=== PATIENT | female | born 1990 | race Caucasian/White ===

== ENCOUNTER → 2017-11-20 10:51 | Outpatient (CLI) | payer MEDICAID, SELFPAY ==
--- NOTE | 2017-11-20 10:53 | US_ITS ---
US transvaginal HISTORY: ITS.REASON: abnormal vag bleeding ORDERING PHYSICIAN: Srikanth Barrios MD PATIENT AGE: 26 years COMPARISON: FINDINGS: The uterus is 8 x 4 x 5 cm with a combined endometrial thickness of 10 mm including a small amount of fluid within the endometrium. No obvious uterine mass. section scar is noted. Left ovary is 3.7 x 2.4 cm. Right ovary is 2.9 x 1.9 cm with small follicles. No cul-de-sac fluid evident. IMPRESSION: 1. Small amount fluid within the endometrium. 2. Otherwise negative pelvic ultrasound
== END ==
PROVIDERS: PCP Physician Assistant; Visit Provider Nurse Practitioner Obstetrics & Gynecology
DX: N93.9 Abnormal uterine and vaginal bleeding, unspecified (principal)
CPT/HCPCS: 76830

== ENCOUNTER → 2020-02-07 17:29 | Outpatient (CLI) | payer MEDICAID, SELFPAY | PROVIDERS: Visit Provider Nurse Practitioner Obstetrics & Gynecology | DX: N39.0 Urinary tract infection, site not specified (principal) | CPT/HCPCS: 87086 ==

== ENCOUNTER 2020-06-28 17:10 | Emergency (ER) | payer MEDICAID, SELFPAY ==
[2020-06-28 17:30] VITALS: BP 131/72; PULSE 106; RESP 20; TEMP 36.6; O2SAT 100; BMI 27.6
[2020-06-28 17:35] VITALS: BP 131/72; PULSE 106; RESP 20; TEMP 36.6; O2SAT 100; BMI 27.6
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
[2020-06-28 18:28] VITALS: BP 131/72; PULSE 106; RESP 20; TEMP 36.6; O2SAT 100
== END 2020-06-28 18:30 | disposition home or self-care (01) ==
PROVIDERS: Emergency Provider Nurse Practitioner; PCP Physician Assistant
DX: S20.212A Contusion of left front wall of thorax, initial encounter (principal); S60.222A Contusion of left hand, initial encounter; V47.5XXA Car driver injured in collision with fixed or stationary object in traffic accident, initial encounter; Y92.488 Other paved roadways as the place of occurrence of the external cause
CPT/HCPCS: 71101; 73130; 99201

== ENCOUNTER 2021-11-11 03:09 | Emergency (ER) | payer MEDICAID, SELFPAY ==
[2021-11-11 03:11] VITALS: BP 141/88; PULSE 86; RESP 19; TEMP 36.8; O2SAT 98; BMI 25.7
[2021-11-11 03:32] VITALS: BMI 25.7
--- NOTE | 2021-11-11 03:32 | XR_ITS ---
PROCEDURE INFORMATION: Exam: XR Chest Exam date and time: 11/11/2021 4:05 AM Age: 30 years old Clinical indication: Cough TECHNIQUE: Imaging protocol: XR of the chest. Views: 2 views. COMPARISON: CR XR RIBS LT MIN 3V W CXR1V 06/28/2020 5:37 PM FINDINGS: Lungs: Unremarkable. No consolidation. Pleural spaces: Unremarkable. No pleural effusion. No pneumothorax. Heart/Mediastinum: Unremarkable. No cardiomegaly. Bones/joints: Unremarkable. IMPRESSION: No acute cardiopulmonary abnormality.
[2021-11-11 03:44] LABS: Coronavirus 19, PCR Not Detected (NotDetected); Influenza A, PCR Not Detected (NotDetected); Influenza B, PCR Not Detected (NotDetected)
[2021-11-11 03:48] LABS: Basophils # 0.2 K/mm3 (0-0.2); Basophils % 2.2 % (0.1-2.0); Eosinophils # 0.2 K/mm3 (0.0-0.4); Eosinophils % 2.9 % (0.1-12.0); Hematocrit 42.4 % (37.0-47.0); Hemoglobin 13.5 g/dL (12.2-16.2); Lymphocytes # 1.8 K/mm3 (0.7-4.5); Mean Corpuscular Hemoglobin 31.2 pg (27.0-31.2); Mean Corpuscular Volume 97.7 fl (81-99); Mean Platelet Volume 8.3 fl (7.4-10.4); Monocytes # 0.5 K/mm3 (0.1-1.0); Monocytes % 6.8 % (1.7-9.3); Neutrophils % 65.1 % (37.0-80.0); Platelet Count 336 K/mm3 (142-424); Red Blood Count 4.34 M/mm3 (4.20-5.40); Red Cell Distribution Width 15.1 % (11.5-17.5); White Blood Count 7.7 K/mm3 (4.8-10.8)
[2021-11-11 03:56] LABS: Monoscreen (Rapid) Negative (Negative)
[2021-11-11 04:00] LABS: Alanine Aminotransferase 16 U/L (12-78); Albumin Level 4.3 g/dl (3.5-5.0); Albumin/Globulin Ratio 1.7 (1.1-1.8); Alkaline Phosphatase 72 U/L (38-126); Anion Gap 11.9 mEq/L (5-15); Aspartate Amino Transferase 26 U/L (14-36); Bilirubin,Total 0.4 mg/dl (0.2-1.3); Blood Urea Nitrogen 9 mg/dl (7-17); Calcium 9.5 mg/dl (8.4-10.2); Carbon Dioxide 26 mmol/L (22.0-30.0); Chloride 107 mmol/L (98-107); Creatinine Clearance Estimated 99 mL/min (50-200); Estimated Glomerular Filt Rate 84 ml/min (>60); GFR (African American) 101 ML/MIN (>60); Globulin 2.6 g/dL (1.3-3.2); Glucose 95 mg/dl (74-100); Potassium 3.9 mmoL/L (3.5-5.1); Sodium 141 mmol/L (136-145); Total Protein,Serum 6.9 g/dl (6.3-8.2)
[2021-11-11 04:03] LABS: Strep Scrn Group A (Rapid) Negative (Negative)
[2021-11-11 04:05] LABS: C-Reactive Protein 1.1 mg/L (0-4)
--- NOTE | 2021-11-11 04:09 | HMH.EDURI ---
ED Disposition Clinical Impression: Bronchitis Disposition: Home, Self-Care Condition on Discharge: Good Instructions: DI for Acute Bronchitis Additional Instructions: use meds and see pcp for follow up Prescriptions: levoFLOXacin [Levaquin 500mg tab] 500 mg PO DAILY #7 tab Transmission Status: Pending to [facility] predniSONE [Prednisone 20mg Tab] 20 mg PO BID #10 tab Transmission Status: Pending to [facility] Referrals: Mary Yang PA [Primary Care Provider] - - Critical Care Critical Care Time: No Attestation: On 11/11/21, the high probability of a clinically significant, sudden or life threatening deterioration of the following system(s) required my full and direct attention, intervention and personal management. The time I documented below is in addition to time spent performing reported procedures but includes the following listed in this critical care notation. Medical Decision Making - Medical Records Medical records reviewed: Yes: I reviewed the patient's medical records. - Ilya Inquiry Pt receiving controlled substance: No Vital Signs: 11/11/21 03:11 Temperature 98.2 F Temperature Source Oral Pulse Rate [Right] 86 Respiratory Rate 19 Blood Pressure [Right Arm] 141/88 H Blood Pressure Mean [Right Arm] 105 02 Sat by Pulse Oximetry 98 Oxygen Delivery Method Room Air - Lab Data Lab results reviewed: Yes: I reviewed the patient's lab results. Lab Results 11/11/21 03:26: WBC 7.7, RBC 4.34, Hgb 13.5, Hct 42.4, MCV 97.7, MCH 31.2, MCHC 32.0, RDW 15.1, Plt Count 336, MPV 8.3, Neut % (Auto) 65.1, Lymph % (Auto) 23.0, Newberry % (Auto) 6.8, Eos % (Auto) 2.9, Baso % (Auto) 2.2 H, Neut # (Auto) 5.0, Lymph # (Auto) 1.8, Newberry # (Auto) 0.5, Eos # (Auto) 0.2, Baso # (Auto) 0.2, ESR 15 11/11/21 03:26: Sodium 141, Potassium 3.9, Chloride 107, Carbon Dioxide 26, Anion Gap 11.9, BUN 9, Creatinine 0.80, Estimated Creat Clear 99, Estimated GFR 84, Est GFR ( Amer) 101, Glucose 95, Calcium 9.5, Total Bilirubin 0.4, AST 26, ALT 16, Alkaline Phosphatase 72, C-Reactive Protein 1.1, Total Protein 6.9, Albumin 4.3, Globulin 2.6, Albumin/Globulin Ratio 1.7, Procalcitonin 0.042 11/11/21 03:26: Monoscreen Negative 11/11/21 03:26: Group A Strep Rapid Negative 11/11/21 03:26: SARS-CoV-2 (PCR) Not detected, Influenza A Untype (PCR) Not detected, Influenza Type B (PCR) Not detected Result diagrams: 11/11/21 03:26 11/11/21 03:26 Orders (Tests/Meds): ED MEDICATIONS Discontinued Medications Generic Name Dose Route Start Last Admin Trade Name Freq PRN Reason Stop Dose Admin Acetaminophen/Codeine Phosphate 1 jeanmarie 11/11/21 04:41 Acetaminophen 300mg W/Codeine 30mg Take Home Pack (6) PO 11/11/21 04:42 ONCE ONE Levofloxacin 500 mg 11/11/21 04:41 Levofloxacin 500mg Tab PO 11/11/21 04:42 ONCE ONE Prednisone 40 mg 11/11/21 04:17 11/11/21 04:22 Prednisone 20mg Tab PO 11/11/21 04:18 Not Given ONCE ONE Prednisone 40 mg 11/11/21 04:41 Prednisone 20mg Tab PO 11/11/21 04:42 ONCE ONE ORDERS Category Date Time Status CXR 2 view (NOT portable) [XR chest 2V] Stat Exams 11/11/21 03:32 Taken Strep Screen Confirmation Stat Micro 11/11/21 03:26 Received - Radiology Data #1 Image(s): Chest Image Reviewed: Yes I have reviewed radiologist's interpretation Preliminary Findings: Normal/NAD Medical Decision Narrative: will direct support professional caregiver meds at this time URI/Sore Throat HPI - General Chief Complaint: Upper Respiratory Infection Stated Complaint: Sore Throat;swollen glands and knot under jaw Time Seen by Provider: 11/11/21 04:10 Mode of Arrival: Family Vehicle Source of Information: Patient, Significant Other, Medical Record Limitations: No Limitations Description of Symptoms (Recalled from ER Triage Doc. by RN): Pt c/o productive cough and sore throat that began last night 11/10. She also c/o swelling to left lymph node. Denies fever
[2021-11-11 04:15] LABS: Erythrocyte Sedimentation Rate 15 mm/hr (0-20)
[2021-11-11 04:19] LABS: Procalcitonin 0.042 ng/mL (0.0-2.0)
[2021-11-11 04:50] VITALS: BP 140/80; PULSE 70; RESP 18; TEMP 36.7; O2SAT 99
== END 2021-11-11 04:57 | disposition home or self-care (01) ==
PROVIDERS: Emergency Provider Emergency Medicine; PCP Physician Assistant
DX: J40 Bronchitis, not specified as acute or chronic (principal); Z88.5 Allergy status to narcotic agent; Z88.8 Allergy status to other drugs, medicaments and biological substances; Z72.0 Tobacco use; F41.9 Anxiety disorder, unspecified; F32.A Depression, unspecified; Z80.1 Family history of malignant neoplasm of trachea, bronchus and lung; Z80.8 Family history of malignant neoplasm of other organs or systems
CPT/HCPCS: 71046; 80053; 84145; 85025; 85651; 86140; 86318; 87430; 99284; C9803; U0003; U0005

== ENCOUNTER 2024-05-11 11:02 | Outpatient (CLI) | payer MEDICAID, SELFPAY ==
--- NOTE | 2024-05-11 11:42 | ECG_ITS ---
APPROVED REPORT Exam: Resting ECG HR:92 bpm ECG Measurements Heart Rate 92 AXES WV 152 P 67 QRSd 70 QRS 61 QT 358 T 36 QTc 407 Conclusion SINUS RHYTHM NORMAL ECG UNCONFIRMED REPORT Electronically signed by : Brian Woods MD 05/13/2024 09:04:56
[2024-05-11 12:40] LABS: Basophils % 0.6 % (0.1-2.0); Eosinophils # 0.5 K/mm3 (0.0-0.4); Eosinophils % 7.6 % (0.1-12.0); Hematocrit 39.6 % (37.0-47.0); Hemoglobin 12.8 g/dL (12.2-16.2); Lymphocytes # 1.3 K/mm3 (0.7-4.5); Mean Corpuscular HGB Conc 32.4 g/dL (31.8-35.4); Mean Corpuscular Hemoglobin 31.7 pg (27.0-31.2); Mean Corpuscular Volume 97.6 fl (81-99); Mean Platelet Volume 8.3 fl (7.4-10.4); Monocytes # 0.6 K/mm3 (0.1-1.0); Monocytes % 8.2 % (1.7-9.3); Neutrophils # 4.7 K/mm3 (1.8-7.8); Neutrophils % 65.5 % (37.0-80.0); Platelet Count 303 K/mm3 (142-424); Red Blood Count 4.06 M/mm3 (4.20-5.40); Red Cell Distribution Width 13.1 % (11.5-17.5); White Blood Count 7.1 K/mm3 (4.8-10.8)
[2024-05-11 13:05] LABS: Albumin Level 3.1 g/dl (3.5-5.0); Chloride 108 mmol/L (98-107); Potassium 3.3 mmoL/L (3.5-5.1); Sodium 137 mmol/L (136-145)
[2024-05-11 13:08] LABS: Alanine Aminotransferase 37 U/L (12-78); Albumin/Globulin Ratio 1.2 (1.1-1.8); Alkaline Phosphatase 49 U/L (38-126); Aspartate Amino Transferase 49 U/L (14-36); Bilirubin,Total 0.8 mg/dl (0.2-1.3); Blood Urea Nitrogen 4 mg/dl (7-17); Cholesterol 107 mg/dl (140-200); Estimated Glomerular Filt Rate 96 ml/min (>60); GFR (African American) 116 ML/MIN (>60); Globulin 2.5 g/dL (1.3-3.2); Total Protein,Serum 5.6 g/dl (6.3-8.2); Triglycerides 52 mg/dl (30-150); VLDL Cholesterol 10 mg/dL (0-40)
[2024-05-11 13:09] LABS: Calcium 8.5 mg/dl (8.4-10.2); Chol/HDL Ratio 2.9 (1-3.5); Glucose 126 mg/dl (74-100); HDL Cholesterol 37 mg/dl (40-60)
[2024-05-11 13:12] LABS: Erythrocyte Sedimentation Rate 15 mm/hr (0-20)
[2024-05-11 13:15] LABS: C-Reactive Protein 2.4 mg/L (0-4)
[2024-05-11 13:18] LABS: NT Pro Brain Natriuretic Pep. 93.2 pg/mL (0-125)
[2024-05-11 13:20] LABS: Direct LDL Cholesterol 57.27 mg/dL (100-129)
[2024-05-11 14:46] LABS: Uric Acid 3.7 mg/dl (2.5-6.2)
[2024-05-11 15:17] LABS: Thyroid Stimulating Hormone 1.01 uIU/mL (0.465-4.68)
[2024-05-11 15:22] LABS: Anion Gap 10.3 mEq/L (5-15); Carbon Dioxide 22 mmol/L (22.0-30.0)
[2024-05-11 15:55] LABS: HIV (1&2) Antibody Rapid NONREACTIVE (NONREACTIVE)
[2024-05-12 12:13] LABS: Anti-Centromere B Antibodies <0.2 AI (0.0-0.9); Anti-DNA (DS) Ab Qn <1 IU/mL (0-9); Anti-Jo-1 <0.2 AI (0.0-0.9); Anti-Smith Antibody <0.2 AI (0.0-0.9); Antichromatin Antibodies <0.2 AI (0.0-0.9); Antiscleroderma-70 Antibodies <0.2 AI (0.0-0.9); RNP Antibodies <0.2 AI (0.0-0.9); Sjogren's Anti-SS-A <0.2 AI (0.0-0.9); Sjogren's Anti-SS-B <0.2 AI (0.0-0.9)
[2024-05-13 02:39] LABS: Lupus Reflex Interpretation Comment: (.); PTT-LA 37.8 sec (0.0-43.5); dRVVT 35.6 sec (0.0-47.0)
[2024-05-13 20:10] LABS: HCV Ab Reactive (Non Reactive)
== END 2024-05-11 23:59 | disposition home or self-care (01) ==
PROVIDERS: PCP Family Medicine; Visit Provider Family Medicine
DX: R00.0 Tachycardia, unspecified (principal); M79.89 Other specified soft tissue disorders; M25.50 Pain in unspecified joint; Z11.4 Encounter for screening for human immunodeficiency virus [HIV]
CPT/HCPCS: 36415; 80050; 80053; 80061; 83880; 84443; 84550; 85025; 85613; 85651; 86140; 86225; 86235; 86803; 87389; 93005

== ENCOUNTER 2024-06-12 14:39 | Emergency (ER) | payer MEDICAID, SELFPAY ==
--- OUTSIDE RECORDS SUMMARY | 2024-06-12 14:44 | XMS_ITS | Encounter Summary ---
Author Organization [facility] Address [address] [place] [address] Care Team Providers Care Short Filler Bunch Machine Operator Name Role Phone Eugenio Ibarra MD Primary Care Provider [phone] Reason for Referral * Diagnostic Imaging (Routine) - Closed Specialty Diagnoses / Procedures Referred By Contac t Referred To Contact Radiology Diagnoses Umbilical hernia without obstruction and without gangrene Procedures CT Abdomen Pelvis Without Contrast Hoang Justice MD [address] [place] [address] Phone: tel: fax: [place] [address] Phone: tel: Referral ID Status Reason Start Date Expiration Date Visits Re quested Visits Authorized [id number] Closed 11/23/2019 01/06/2020 1 1 Reason for Visit * Diagnostic Imaging (Routine) - Closed Specialty Diagnoses / Procedures Referred By Contac t Referred To Contact Radiology Diagnoses Umbilical hernia without obstruction and without gangrene Procedures CT Abdomen Pelvis Without Contrast Hoang Justice MD [address] [place] [address] Phone: tel: fax: [address] [phone] Phone: tel: Referral ID Status Reason Start Date Expiration Date Visits Re quested Visits Authorized [id number] Closed 11/23/2019 01/06/2020 1 1 Encounter Details Date Type Department Care Team (Late st Contact Info) Description 12/08/2019 10:32 AM EDT - 12/08/2019 11:59 PM EDT Hospital Encounter [facility] [address] [place] [phone] Hoang Justice MD [address] [facility] [address] [place] [id number] Umbilical hernia without obstruction and without gangrene Discharge Disposition: Home or Self Care Social History Tobacco Use Types Packs/Day Years Used Date Smoking Tobacco: Every Day Cigarettes Alcohol Use Standard Drinks/Week Comments No 0 (1 standard drink = 0.6 oz pur e alcohol) Comments Unknown Sex and Gender Information Value Date Recorded Sex Assigned at Not on file Legal Sex Female 11:09 PM EDT Gender Identity Not on file Sexual Orientation Not on file documented as of this encounter Medications at Time of Discharge nitrofurantoin, macrocrystal-monohyd rate, (MACROBID) 100 MG capsule Take 100 mg by mouth 2 (Two) Times a Day. ondansetron ODT (ZOFRAN-ODT) 4 MG disintegrating tablet Take 1 tablet by mouth Every 6 (Six) Hours As Needed for Nausea or Vomiting for up to 15 doses. 10 tablet 02/05/2017 Buprenorphine HCl-Naloxone HCl (SUBOXONE SL) Place under the tongue. 0 documented as of this encounter Plan of Treatment Not on file documented as of this encounter Procedures Procedure Name Priority Date/Time Associated Diagnosis Comments CT ABDOMEN PELVIS WO CONTRAST Routine 12/08/2019 11:45 AM EDT Umbilical hernia without obstruction and without gangrene documented in this encounter Results * CT Abdomen Pelvis Without Contrast (12/08/2019 11:45 AM EDT) Anatomical Region Laterality Modality Abdomen, Pelvis N/A Computed Tomogra phy 12/08/2019 12:0 6 PM EDT Impressions 12/10/2019 10:01 AM EDT 1. No evidence of periumbilical hernia or other abdominal wall hernia. 2. No evidence of acute intra-abdominal or intrapelvic disease. D: ??12/08/2019 E: ??12/08/2019 This report was finalized on 12/10/2019 10:[address] Krishan Husain MD. Narrative 12/10/2019 10:01 AM EDT EXAMINATION: CT ABDOMEN AND PELVIS WO CONTRAST-12/08/2019: INDICATION: K42.9 Umbilical hernia; K42.9-Umbilical hernia without obstruction or gangrene. TECHNIQUE: 5 mm postoral contrast images through the abdomen and pelvis. The radiation dose reduction device was turned on for each scan per the ALARA (As Low as Reasonably Achievable) protocol. COMPARISON: NONE. FINDINGS: History indicates status post umbilical hernia repair in 2018, subsequent infection. Followup. No current complaints. The included lower lungs appear grossly clear. No significant abnormalities are noted of the liver, gallbladder, spleen, pancreas, adrenal glands, or kidneys for a non-IV contrast enhanced exam. No upper abdominal adenopathy, ascites, or acute inflammatory change is appreciated. Regarding the lower abdomen and pelvis, there is only trace fat stranding around the umbilicus. There is no evidence of recurrent hernia and no evidence of abdominal wall hernia or inguinal hernia elsewhere. Regarding the lower abdomen and pelvis, there is a normal appearing terminal ileum, cecum and appendix. The uterus and ovaries are normal in size and appearance. The bladder is normally distended and normal in appearance. There appear to be bilateral tubal ligation clips in place. No mass, adenopathy, or inflammatory change is seen. Procedure Note Krishan Husain MD - 12/10/2019 EXAMINATION: CT ABDOMEN AND PELVIS WO CONTRAST-12/08/2019: INDICATION: K42.9 Umbilical hernia; K42.9-Umbilical hernia without obstruction or gangrene. TECHNIQUE: 5 mm postoral contrast images through the abdomen and pelvis. The radiation dose reduction device was turned on for each scan per the ALARA (As Low as Reasonably Achievable) protocol. COMPARISON: NONE. FINDINGS: History indicates status post umbilical hernia repair in 2018, subsequent infection. Followup. No current complaints. The included lower lungs appear grossly clear. No significant abnormalities are noted of the liver, gallbladder, spleen, pancreas, adrenal glands, or kidneys for a non-IV contrast enhanced exam. No upper abdominal adenopathy, ascites, or acute inflammatory change is appreciated. Regarding the lower abdomen and pelvis, there is only trace fat stranding around the umbilicus. There is no evidence of recurrent hernia and no evidence of abdominal wall hernia or inguinal hernia elsewhere. Regarding the lower abdomen and pelvis, there is a normal appearing terminal ileum, cecum and appendix. The uterus and ovaries are normal in size and appearance. The bladder is normally distended and normal in appearance. There appear to be bilateral tubal ligation clips in place. No mass, adenopathy, or inflammatory change is seen. IMPRESSION: 1. No evidence of periumbilical hernia or other abdominal wall hernia. 2. No evidence of acute intra-abdominal or intrapelvic disease. E: 12/08/2019 This report was finalized on 12/10/2019 10:[address] Krishan Husain MD. Hoang Justice MD IMG CT ORDERABLES Final Resu lt documented in this encounter Visit Diagnoses Diagnosis Umbilical hernia without obstruction and without gangrene documented in this encounter Administered Medications Inactive Administered Medications - up to 3 most recent administrations Medication Order MAR Action Action Date Dose Rate Site barium (READI-CAT 2) suspension 450 mL 450 mL, Oral, Once, On Taty 12/08/19 at 1030, For 1 dose, {BKC} Shake well before administration. Given 12/08/2019 10:30 AM EDT 450 mL documented in this encounter Care Teams Short Filler Bunch Machine Operator Relationship Specialty Start Date End Date Eugenio Ibarra MD [address] [facility] [address] ATTN: [place] [address] PCP - General Emergency Medicine 09/04/17 documented as of this encounter
--- OUTSIDE RECORDS SUMMARY | 2024-06-12 14:44 | XMS_ITS | Clinical Summary ---
Author Organization [facility] Address [address] [place] [address] Care Team Providers Care [place] Attorney Name Role Phone Eugenio Ibarra MD Primary Care Provider [phone] Allergies Active Allergy Reactions Criticality Noted Date Comments Codeine Hives,Nausea Only 02/04/2017 Morphine And Codeine Swelling 02/04/2017 Medications nitrofurantoin, macrocrystal-monohy drate, (MACROBID) 100 MG capsule Take 100 mg by mouth 2 (Two) Times a Day. Active ondansetron ODT (ZOFRAN-ODT) 4 MG disintegrating tablet Take 1 tablet by mouth Every 6 (Six) Hours As Needed for Nausea or Vomiting for up to 15 doses. 10 tablet 7 Active Social History Tobacco Use Types Packs/Day Years Used Date Smoking Tobacco: Every Day Cigarettes Alcohol Use Standard Drinks/Week Comments No 0 (1 standard drink = 0.6 oz pur e alcohol) Abuse Screen Answer Date Recorded Unsafe at Home or Work/School Not on file Feels Threatened by Someone? Not on file 05/2023 Does Anyone Keep You from Co ntacting Others or Doint Things Outside the Home? Not on file 04/22/2023 Physical Sign of Abuse Present Not on file 1 Housing Stability Answer Date Recorded Current Living Arrangements Not on file 04/12 Potentially Unsafe Housing Conditions Not on aly e 04/22/2023 Family and Community Support Answer Reyes e Recorded Help with Day-to-Day Activities Not on file 04/22/2023 Lonely or Isolated Not on file 04/22/2023 Employment Answer Date Recorded Do you want help finding or keeping work or a karly b? Not on file 04/22/2023 Disabilities Answer Date Recorded Concentrating, Remembering, or Making Decisions Difficulty Not on file 04/22/2023 Doing Errands Independently Difficulty Not on fi le 04/22/2023 Education Answer Date Recorded Help with school or training? Not on file Preferred Language Not on file 04/22/2023 Comments Unknown Sex and Gender Information Value Date Recorded Sex Assigned at Not on file Legal Sex Female 11:09 PM EDT Gender Identity Not on file Sexual Orientation Not on file Last Filed Vital Signs Vital Sign Reading Time Taken Comments Blood Pressure 101/68 02/05/2017 4:21 AM EDT Pulse 68 02/05/2017 4:21 AM EDT Temperature 36.8 ??C (98.3 ??F) 02/04/2017 11:10 PM E DT Respiratory Rate 18 02/05/2017 4:21 AM EDT Oxygen Saturation 98% 02/05/2017 4:21 AM EDT Inhaled Oxygen Concentration - - Weight 80.3 kg (177 lb) 02/04/2017 11:10 PM EDT Height 152.4 cm (5') 02/04/2017 11:10 PM EDT Body Mass Index 34.57 02/04/2017 11:10 PM EDT Plan of Treatment Health Maintenance Due Date Last Done Comments Annual Gynecologic Pelvic and Breast Exam 1989 Pneumococcal Vaccine 0-64 (1 of 2 - PCV) 11/29/1995 TDAP/TD VACCINES (1 - Tdap) 2008 ANNUAL PHYSICAL 02/04/2017 HEPATITIS C SCREENING 02/04/2017 PAP SMEAR 02/04/2017 INFLUENZA VACCINE 01/11/2024 COVID-19 Vaccine ( season) 2024 Insurance Deng FELIPE VICKYVasile DARWIN [employer]LLER [id number] [facility] [place]ICAID [place] Advance Directives Documents on File Type Date Recorded Patient Handhole Machine Operator Expl anation LIVING WILL - SCAN 09/09/2017 3:44 PM RIKA NG WILL 09/04/17 Care Teams [place] Attorney Relationship Specialty Start Date End Date Eugenio Ibarra MD [facility] [address] ATTN: [place] [address] PCP - General Emergency Medicine 09/04/17
--- OUTSIDE RECORDS SUMMARY | 2024-06-12 14:44 | XMS_ITS | Encounter Summary ---
[facility] [address] [place] [address] Care Team Providers Care Rag Production Worker Name Role Phone Provider, No Known Primary Care Provider Unavail able Reason for Visit * Reason Comments Nausea Encounter Details Date Type Department Care Team (Late st Contact Info) Description 02/04/2017 11:27 PM EDT - 02/05/2017 4:22 AM EDT Emergency [facility] EMERGENCY DEPARTMENT [address] [place] [id number] Jace Baldwin MD [address] [facility] [place] [address] Non-intractable vomiting with nausea, unspecified vomiting type (Primary Dx); Acute superficial gastritis without hemorrhage Discharge Disposition: Home or Self Care Social [...] on file documented as of this encounter Last Filed Vital Signs Vital Sign Reading [...] Mass Index 34.57 02/04/2017 11:10 PM EDT documented in this encounter Discharge Instructions * Attachments The following attachments cannot be sent through Care Everywhere. * GASTRITIS, ADULT ([place]) * NAUSEA AND VOMITING, ADULT ([place]) documented in this encounter Medications at Time of Discharge nitrofurantoin, macrocrystal-monohyd rate, (MACROBID) 100 MG capsule Take 100 mg by mouth 2 (Two) Times a Day. ondansetron ODT (ZOFRAN-ODT) 4 MG disintegrating tablet Take 1 tablet by mouth Every 6 (Six) Hours As Needed for Nausea or Vomiting for up to 15 doses. 10 tablet 02/05/2017 omeprazole (priLOSEC) 40 MG capsule Take 1 capsule by mouth Daily for 30 days. 30 capsule 02/05/2017 7 Buprenorphine HCl-Naloxone HCl (SUBOXONE SL) Place under the tongue. 0 documented as of this encounter ED Notes * Jace Baldwin MD - 02/04/2017 11:43 PM EDT Subjective HPI Comments: Ms. Haydee Garay is a 26 year old female with a hx of 4 Caesarian sections and tubal ligation who presents to the ED with c/o nausea and vomiting. The patient states that approximately 3 months ago, she began to vomit. She reports that since then, she has vomited daily, usually no fewerthan 3 times a day. Today, the patient's noted that she had vomited 5 times prior to 1700. She notes that the vomiting increases after eating and is accompanied by abd pain and decreased urination. The patient went to the [facility] about a week and a half ago, where theydiagnosed her with a UTI and prescribed her Macrobid, however the patient states that they failed to refer her to a GI specialist. 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 She still takes minimal amounts of Suboxone throughout the week.She also takes Zofran reguarly, which she claims helps to alleviate some of the nausea. She denies any fever, SoA, changes to her BM or any other acute sx at this time. Patient is a 26 y.o. female presenting with vomiting. History provided by: Patient Vomiting The primary symptoms include abdominal pain, nausea and vomiting. Primary symptoms do not include fever or diarrhea. The illness began more than 7 days ago (3 months ago). The onset was sudden. The problem has been gradually worsening. The illness does not include constipation. Review of Systems Constitutional: Negative for fever. Respiratory: Negative for shortness of breath. Gastrointestinal: Positive for abdominal pain, nausea and vomiting. Negative for blood in stool, constipation and diarrhea. Genitourinary: Positive for decreased urine volume. All other systems reviewed and are negative. Past Medical History: Diagnosis Date ??? Asthma ??? Liver disease Allergies Allergen Reactions ??? Codeine Hives and Nausea Only ??? Morphine And Related Swelling Past Surgical History: Procedure Laterality Date ??? SECTION X 4 ??? TUBAL ABDOMINAL LIGATION History reviewed. No pertinent family history. Social History Social History ??? Marital status: Spouse name: N/A ??? Number of children: N/A ??? Years of education: N/A Social History Main Topics ??? Smoking status: Current Every Day Smoker Packs/day: 0.50 ??? Smokeless tobacco: None ??? Alcohol use No ??? 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 Sexual activity: Yes Other Topics Concern ??? None Social History Narrative ??? None Objective Physical Exam Constitutional: She is oriented to person, place, and time. She appears well- developed and well-nourished. No distress. HENT: Head: Normocephalic and atraumatic. Eyes: Conjunctivae are normal. No scleral icterus. Neck: Normal range of motion. Neck supple. Cardiovascular: Normal rate, regular rhythm and normal heart sounds. Exam reveals no gallop and no friction rub. No murmur heard. Pulmonary/Chest: Effort normal and breath sounds normal. No respiratory distress. She has no wheezes. She has no rales. Abdominal: Soft. Bowel sounds are normal. There is no tenderness. There is no guarding. Musculoskeletal: Normal range of motion. Neurological: She is alert and oriented to person, place, and time. Skin: Skin is warm and dry. She is not diaphoretic. Psychiatric: She has a normal mood and affect. Her behavior is normal. Nursing note and vitals reviewed. Procedures ED Course ED Course Recent Results (from the past 24 hour(s)) POCT , urine Collection Time: 02/05/17 12:10 AM Result Value Ref Range HCG, Urine, QL Negative Negative Lot Number [id number] Internal Positive Control Positive Internal Negative Control Negative CBC Auto Differential Collection Time: 02/05/17 12:41 AM Result Value Ref Range WBC 6.53 3.50 - 10.80 10*3/mm3 RBC 4.56 3.89 - 5.14 10*6/mm3 Hemoglobin 14.4 11.5 - 15.5 g/dL Hematocrit 43.4 34.5 - 44.0 % MCV 95.2 80.0 - 99.0 fL MCH 31.6 (H) 27.0 - 31.0 pg MCHC 33.2 32.0 - 36.0 g/dL RDW 13.8 11.3 - 14.5 % RDW-SD 48.0 37.0 - 54.0 fl MPV 11.9 6.0 - 12.0 fL Platelets 271 150 - 450 10*3/mm3 Neutrophil % 57.4 41.0 - 71.0 % Lymphocyte % 32.3 24.0 - 44.0 % Monocyte % 6.3 0.0 - 12.0 % Eosinophil % 3.2 (H) 0.0 - 3.0 % Basophil % 0.6 0.0 - 1.0 % Immature Grans % 0.2 0.0 - 0.6 % Neutrophils, Absolute 3.75 1.50 - 8.30 10*3/mm3 Lymphocytes, Absolute 2.11 0.60 - 4.80 10*3/mm3 Monocytes, Absolute 0.41 0.00 - 1.00 10*3/mm3 Eosinophils, Absolute 0.21 0.00 - 0.30 10*3/mm3 Basophils, Absolute 0.04 0.00 - 0.20 10*3/mm3 Immature Grans, Absolute 0.01 0.00 - 0.03 10*3/mm3 Scan Slide Collection Time: 02/05/17 12:41 AM Result Value Ref Range RBC Morphology Normal Normal WBC Morphology Normal Normal Platelet Morphology Normal Normal Urinalysis With / Culture If Indicated Collection Time: 02/05/17 12:42 AM Result Value Ref Range Color, UA Dark Yellow (A) Yellow, Straw Appearance, UA Cloudy (A) Clear pH, UA 6.0 5.0 - 8.0 Specific [place], UA 1.018 1.001 - 1.030 Glucose, UA Negative Negative Ketones, UA Trace (A) Negative Bilirubin, UA Small (1+) (A) Negative Blood, UA Moderate (2+) (A) Negative Protein, UA Negative Negative Leuk Esterase, UA Negative Negative Nitrite, UA Negative Negative Urobilinogen, UA 1.0 E.U./dL 0.2 - 1.0 E.U./dL Urine Drug Screen Collection Time: 02/05/17 12:42 AM Result Value Ref Range THC, Screen, Urine Negative Negative Phencyclidine (PCP), Urine Negative Negative Cocaine Screen, Urine Negative Negative Methamphetamine, Urine Negative Negative Opiate Screen Negative Negative Amphetamine Screen, Urine Negative Negative Benzodiazepine Screen, Urine Negative Negative Tricyclic Antidepressants Screen Negative Negative Methadone Screen, Urine Negative Negative Barbiturates Screen, Urine Negative Negative Oxycodone Screen, Urine Negative Negative Propoxyphene Screen Negative Negative Buprenorphine, Screen, Urine Positive (A) Negative Urinalysis, Microscopic Only Collection Time: 02/05/17 12:42 AM Result Value Ref Range RBC, UA 3-6 (A) None Seen, 0-2 /HPF WBC, UA 0-2 (A) None Seen /HPF Bacteria, UA None Seen None Seen, Trace /HPF Squamous Epithelial Cells, UA 0-2 None Seen, 0-2 /HPF Hyaline Casts, UA 0-6 0 - 6 /LPF Calcium Oxalate Crystals, UA Moderate/2+ None Seen /HPF Methodology Manual Light Microscopy POC CHEM 8 Collection Time: 02/05/17 1:40 AM Result Value Ref Range Glucose 84 70 - 130 mg/dL BUN, Arterial <3 (L) 8 - 26 mg/dL Creatinine 0.60 0.60 - 1.30 mg/dL Sodium 141 138 - 146 mmol/L Potassium 3.3 (L) 3.5 - 4.9 mmol/L Chloride 101 98 - 109 mmol/L Total CO2 24 24 - 29 mmol/L Hemoglobin 16.3 12.0 - 17.0 g/dL Hematocrit 48 38 - 51 % Ionized Calcium 1.26 1.20 - 1.32 mmol/L Lipase Collection Time: 02/05/17 1:43 AM Result Value Ref Range Lipase 27 6 - 51 U/L Note: In addition to lab results from this visit, the labs listed above may include labs taken at another facility or during a different encounter within the last 24 hours. Please correlate lab timeswith ED admission and discharge times for further clarification of the services performed during this visit. No orders to display Vitals: 02/05/17 0117 02/05/17 0118 02/05/17 0204 02/05/17 0230 BP: 102/66 109/70 100/59 BP Location: Patient Position: Pulse: Resp: Temp: TempSrc: SpO2: 98% 99% 96% Weight: Height: Medications ondansetron ODT (ZOFRAN-ODT) disintegrating tablet 4 mg (4 mg Oral Given 02/05/17 0203) ECG/EMG Results (last 24 hours) No results found for the last 24 hours. MDM Number of Diagnoses or Management Options Acute superficial gastritis without hemorrhage: new and requires workup Non-intractable vomiting with nausea, unspecified vomiting type: new and requires workup Diagnosis management comments: No acute or concerning abnormalities identified on lab evaluation. Previous labs from [facility] reviewed and nothing of concern. Previous identified urinary tract infection is currently being treated with Macrobid. Patient's symptoms are concerning for gastritis, we'll discharge the patient with referral to GI for outpatient evaluation. We'll exam remains benign, no concern for acute surgical illness. Amount and/or Complexity of Data Reviewed Clinical lab tests: ordered and reviewed Obtain history from someone other than the patient: yes Review and summarize past medical records: yes Independent visualization of images, tracings, or specimens: yes Patient Progress Patient progress: stable Final diagnoses: Non-intractable vomiting with nausea, unspecified vomiting type Acute superficial gastritis without hemorrhage Documentation assistance provided by heather Yang. Information recorded by the scribe was done at my direction and has been verified and validated by me. Hoang Yang 02/05/17 0010 Jace Baldwin MD 02/05/17 0411 documented in this encounter Plan of Treatment Not on file documented as of this encounter Procedures Procedure Name Priority Date/Time Associated Diagnosis Comments LIPASE Routine 02/05/2017 1:43 AM EDT POCT [id number]-HB- HCT STAT 02/05/2017 1:40 AM EDT URINALYSIS, MICROSCOPIC ONLY STAT 02/05/2017 12:42 AM EDT URINALYSIS W/ CULTURE IF INDICATED STAT 02/05/2017 12:42 AM EDT URINE DRUG SCREEN STAT 02/05/2017 12: 42 AM EDT SCAN SLIDE STAT 02/05/2017 12:41 AM EDT CBC WITH AUTO DIFFERENTIAL STAT 02/05/2017 12:41 AM EDT CBC AND DIFFERENTIAL STAT 02/05/2017 12:41 AM EDT POCT PEFORM URINE STAT 02/05/2017 12:10 AM EDT SCANNED - LABS 02/04/2017 documented in this encounter Results * Lipase (02/05/2017 1:43 AM EDT) Pathologist [facility] Lipase 27 6 - 51 U/L 02/05/2017 2:33 AM EDT [facility] Blood Venipuncture / Unknown 02/05/2017 1:43 AM EDT 02/05/2017 1:53 AM EDT us Jace Baldwin MD LAB BLOOD ORDERABLES Mary Beth l Result [facility]
[address] [place] [address], * (ABNORMAL) POC CHEM 8 (02/05/2017 1:40 AM EDT) Pathologist [facility] Glucose 84 70 - 130 mg/dL 02/05/2017 1:50 AM EDT [facility] BUN <3(L) 8 - 26 mg/dL 02/05/2017 1:50 AM EDT [facility] Creatinine 0.60 0.60 - 1.30 mg/dL 02/05/2017 1:50 AM EDT [facility] Sodium 141 138 - 146 mmol/L 02/05/2017 1:50 AM EDT [facility] POC Potassium 3.3(L) 3.5 - 4.9 mmol/L 02/05/2017 1:50 AM EDT [facility] Chloride 101 98 - 109 mmol/L 02/05/2017 1:50 AM EDT [facility] Total CO2 24 24 - 29 mmol/L 02/05/2017 1:50 AM EDT [facility] Hemoglobin 16.3 12.0 - 17.0 g/dL 02/05/2017 1:50 AM EDT [facility] Comment:Serial Number: [id number] Hematocrit 48 38 - 51 % 02/05/2017 1:50 AM EDT [facility] Ionized Calcium 1.26 1.20 - 1.32 mmol/L 02/05/2017 1:50 AM EDT [facility] Blood 02/05/2017 1:40 AM EDT 02/05/2017 1:50 AM EDT [facility] Raciel Baldwin MD POINT OF CARE TEST ORDERA BLES Final Result [facility]
[address] [place] [address], * (ABNORMAL) Urinalysis, Microscopic Only (02/05/2017 12:42 AM EDT) RBC, UA 3-6(A) None Seen, 0-2 /HPF 02/05/2017 1:37 AM EDT [facility] WBC, UA 0-2(A) None Seen /HPF 02/05/2017 1:37 AM EDT [facility] Bacteria, UA None Seen None Seen, Trace /HPF 02/05/2017 1:37 AM EDT [facility] Squamous Epithelial Cells, UA 0-2 None Seen, 0-2 /HPF 02/05/2017 1:37 AM EDT [facility] Hyaline Casts, UA 0-6 0 - 6 /LPF 02/05/2017 1:37 AM EDT [facility] Calcium Oxalate Crystals, UA Moderate/2+ None Seen /HPF 02/05/2017 1:37 AM EDT [facility] Methodology Manual Light Microscopy 02/05/2017 1:37 AM EDT [facility] Urine Urine specimen collection, clean catch / Unknown Collection / Unknown 02/05/2017 12:42 AM EDT 02/05/2017 12:51 AM EDT Jace Baldwin MD URINE ORDERABLES Final Re sult [facility]
[address] [place] [address], * (ABNORMAL) Urine Drug Screen (02/05/2017 12:42 AM EDT) THC, Screen, Urine Negative Negative 2016 1:18 AM EDT [facility] Phencyclidine (PCP), Urine Negative Negative 02/05/2017 1:18 AM EDT [facility] Cocaine Screen, Urine Negative Negative 02/05/2017 1:18 AM EDT [facility] Methamphetamine, Ur Negative Negative 02/05/2017 1:18 AM EDT [facility] Opiate Screen Negative Negative 02/05/2017 1:18 AM EDT [facility] Amphetamine Screen, Urine Negative Negative 02/05/2017 1:18 AM EDT [facility] Benzodiazepine Screen, Urine Negative Negative 02/05/2017 1:18 AM EDT [facility] Tricyclic Antidepressants Screen Negative Negative 02/05/2017 1:18 AM EDT [facility] Methadone Screen, Urine Negative Negative 02/05/2017 1:18 AM [facility] Barbiturates Screen, Urine Negative Negative 02/05/2017 1:18 AM [facility] Oxycodone Screen, Urine Negative Negative 02/05/2017 1:18 AM [facility] Propoxyphene Screen Negative Negative 02/05/2017 1:18 AM [facility] Buprenorphine, Screen, Urine Positive(A) Negative 02/05/2017 1:18 AM [facility] Urine Urine specimen collection, clean catch / Unknown Collection / Unknown 02/05/2017 12:42 AM EDT 02/05/2017 12:51 AM T [facility] - 02/05/2017 1:18 AM EDT Cutoff For Drugs Screened: Amphetamines ? 500 ng/ml Barbiturates ? 200 ng/ml Benzodiazepines ?150 ng/ml Cocaine ?150 ng/ml Methadone ?200 ng/ml Opiates ?100 ng/ml Phencyclidine ? 25 ng/ml THC ? 50 ng/ml Methamphetamine ?500 ng/ml Tricyclic Antidepressants ??300 ng/ml Oxycodone ?100 ng/ml Propoxyphene ? 300 ng/ml Buprenorphine ? 10 ng/ml The normal value for all drugs tested is negative. This report includes unconfirmed screening results, with the cutoff values listed, to be used for medical treatment purposes only. ??Unconfirmed results must not be used for non-medical purposes such as employment or legal testing. ??Clinical consideration should be applied to any drug of abuse test, particularly when unconfirmed results are used. ?? Jace Baldwin MD URINE ORDERABLES Final Re sult [facility]
[address] [place] [address], * (ABNORMAL) Urinalysis With / Culture If Indicated (02/05/2017 12:42 AM EDT) Color, UA Dark Yellow(A) Yellow, Straw 02/05/2017 1:17 AM EDT [facility] Appearance, UA Cloudy(A) Clear 02/05/2017 1:17 AM EDT [facility] pH, UA 6.0 5.0 - 8.0 02/05/2017 1:17 AM EDT [facility] Specific [place], UA 1.018 1.001 - 1.030 02/05/2017 1:17 AM EDT [facility] Glucose, UA Negative Negative 02/05/2017 1:17 AM EDT [facility] Ketones, UA Trace(A) Negative 02/05/2017 1:17 AM EDT [facility] Bilirubin, UA Small (1+)(A) Negative 02/05/2017 1:17 AM EDT [facility] Blood, UA Moderate (2+)(A) Negative 02/05/2017 1:17 AM EDT [facility] Protein, UA Negative Negative 02/05/2017 1:17 AM EDT [facility] Leuk Esterase, UA Negative Negative 02/05/2017 1:17 AM EDT [facility] Nitrite, UA Negative Negative 02/05/2017 1:17 AM EDT [facility] Urobilinogen, UA 1.0 E.U./dL 0.2 - 1.0 E.U./dL 02/05/2017 1:17 AM EDT [facility] Urine Urine specimen collection, clean catch / Unknown Collection / Unknown 02/05/2017 12:42 AM EDT 02/05/2017 12:51 AM EDT Jace Baldwin MD URINE ORDERABLES Final Re sult [facility]
[address] [place] [address], * Scan Slide (02/05/2017 12:41 AM EDT) RBC Morphology Normal Normal 02/05/2017 1:39 AM EDT [facility] WBC Morphology Normal Normal 02/05/2017 1:39 AM EDT [facility] Platelet Morphology Normal Normal 02/05/2017 1:39 AM EDT [facility] Blood Venipuncture / Unknown 02/05/2017 12:41 AM EDT 02/05/2017 12:51 AM EDT Jace Baldwin MD LAB BLOOD ORDERABLES Mary Beth l Result [facility]
[address] [place] [address], * (ABNORMAL) CBC Auto Differential (02/05/2017 12:41 AM EDT) WBC 6.53 3.50 - 10.80 10*3/mm3 02/05/2017 1:39 AM EDT [facility] RBC 4.56 3.89 - 5.14 10*6/mm3 02/05/2017 1:39 AM EDT [facility] Hemoglobin 14.4 11.5 - 15.5 g/dL 02/05/2017 1:39 AM EDT [facility] Hematocrit 43.4 34.5 - 44.0 % 02/05/2017 1:39 AM EDT [facility] MCV 95.2 80.0 - 99.0 fL 02/05/2017 1:39 AM [facility] MCH 31.6(H) 27.0 - 31.0 pg 02/05/2017 1:39 AM [facility] MCHC 33.2 32.0 - 36.0 g/dL 02/05/2017 1:39 AM [facility] RDW 13.8 11.3 - 14.5 % 02/05/2017 1:39 AM [facility] RDW-SD 48.0 37.0 - 54.0 fl 02/05/2017 1:39 AM [facility] MPV 11.9 6.0 - 12.0 fL 02/05/2017 1:39 AM [facility] Platelets 271 150 - 450 10*3/mm3 02/05/2017 1:39 AM [facility] Neutrophil % 57.4 41.0 - 71.0 % 02/05/2017 1:39 AM [facility] Lymphocyte % 32.3 24.0 - 44.0 % 02/05[facility]2017 [facility] Monocyte % 6.3 0.0 - 12.0 % 02/05/2017 1:39 AM [facility] Eosinophil % 3.2(H) 0.0 - 3.0 % 02/05/2017 1:39 AM [facility] Basophil % 0.6 0.0 - 1.0 % 02/05/2017 1:39 AM [facility] Immature Grans % 0.2 0.0 - 0.6 % 02/05/2017 1:39 [facility] Neutrophils, Absolute 3.75 1.50 - 8.30 10*3/mm3 02/05/2017 1:39 [facility] Lymphocytes, Absolute 2.11 0.60 - 4.80 10*3/mm3 02/05/2017 1:39 [facility] Monocytes, Absolute 0.41 0.00 - 1.00 10*3/mm3 02/05/2017 1:39 AM EDT [facility] Eosinophils, Absolute 0.21 0.00 - 0.30 10*3/mm3 02/05/2017 1:39 AM EDT [facility] Basophils, Absolute 0.04 0.00 - 0.20 10*3/mm3 02/05/2017 1:39 AM EDT [facility] Immature Grans, Absolute 0.01 0.00 - 0.03 10*3/mm3 02/05/2017 1:39 AM EDT [facility] Blood Venipuncture / Unknown 02/05/2017 12:41 AM EDT 02/05/2017 12:51 AM EDT Jace Baldwin MD LAB BLOOD ORDERABLES Mary Beth l Result [facility]
[address] [place] [address], [place] [phone] * POCT , urine (02/05/2017 12:10 AM EDT) HCG, Urine, QL Negative Negative [facility] Lot Number [id number] [facility] Internal Positive Control Positive [facility] Internal Negative Control Negative [facility] Urine 02/05/2017 12:1 0 AM EDT Jace Baldwin MD POINT OF CARE TEST ORDERA BLES Final Result [facility]
[address] [place] [address], [place] [phone] * SCANNED - LABS (02/04/2017) [facility] LAB BLOOD ORDERABLES Final Re sult documented in this encounter Visit Diagnoses Diagnosis Non-intractable vomiting with nausea, unspecified vomiting type- Primary Acute superficial gastritis without hemorrhage documented in this encounter Administered Medications Inactive Administered Medications - up to 3 most recent administrations Medication Order MAR Action Action Date Dose Rate Site ondansetron ODT (ZOFRAN-ODT) disintegrating tablet 4 mg 4 mg, Oral, Once, On [place]y 02/05/17 at 0123, For 1 dose, Place on tongue and allow to dissolve. Given 02/05/2017 2:03 AM EDT 4 mg documented in this encounter Active and Recently Administered Medications Times are shown in EDT. Scheduled Medication Order 02/03/2017 02/04/2017 02/05/2017 ondansetron ODT (ZOFRAN-ODT) disintegrating tablet 4 mg (COMPLETED) 4 mg, Oral, Once, On Taty 02/05/17 at 0123, For 1 dose, Place on tongue and allow to dissolve. 0203 (Given - Provid er: Jessenia Heart RN) documented in this encounter Care Teams Rag Production Worker Relationship Specialty Start Date End Date Provider, [place] [address] PCP - General 02/04/17 09/03/17 documented as of this encounter
[2024-06-12 15:42] VITALS: BP 107/69; PULSE 67; RESP 20; TEMP 37; O2SAT 97; BMI 29.2
--- NOTE | 2024-06-12 15:46 | ED_ITS ---
Discharge Plan Disposition Patient Disposition: Home, Self-Care Condition: Good Prescriptions Prescriptions: New azithromycin [Zithromax] 250 mg tablet 250 mg PO UD DOSE PK Qty: 6 0RF Rx Instructions: Take two (2) tablets today, then one (1) tablet days #2 thru #5 [id number]-tjetrkoqs-MT [Bromfed DM] 2-30-10 mg/5 mL Syrup 5 ml PO Q6H PRN (Reason: Cough) Qty: 240 0RF methylprednisolone 4 mg Tablets,Dose Pack 4 mg PO DIRECTED 6 Days Qty: 21 0RF Rx Instructions: Take 1 pack as directed for 6 days No Action buprenorphine-naloxone 2-0.5 mg tablet, sublingual 1 tab sublingual DAILY hydroxyzine pamoate 50 mg capsule 50 mg PO BID PRN (Reason: itching) Qty: 60 0RF Referrals Follow up/Referrals: Provider,Referral, MD [Primary Care Provider] - See instructions Activity Restrictions/Add. Instructions Additional Instructions/Restrictions: Drink plenty of fluids. Take tylenol or ibuprofen for pain or fever. Take the medications as directed. Follow up with your regular doctor. GO TO THE ER FOR ANY WORSENING SYMPTOMS Clinical Impressions Clinical Impression: Bronchitis, Sinusitis Stand Alone Forms Stand Alone Forms: Work/School Release Instructions Patient Instructions: DI for Sinusitis, Sinusitis Print Language Print Language: Finnish Discharge ED Provider: Aaron Osborne [facility] HPI General Stated complaint: congestion, weakness, dizzy, nausea Time Seen by Provider: 06/12/24 15:46 Related Data Home Medications ?Medication ?Instructions ?Recorded ?Confirmed buprenorphine 2 mg-naloxone 0.5 mg 1 tab sublingual DAILY 05/11/24 06/12/24 sublingual tablet Previous Rx's ?Medication ?Instructions ?Recorded hydroxyzine pamoate 50 mg capsule 50 mg PO BID PRN itching #60 caps 05/11/24 azithromycin 250 mg tablet 250 mg PO UD DOSE PK #6 tabs 06/12/24 (Zithromax) gssftoerpckdgqh-crmrjmwhhoqjfzp-AO 5 ml PO Q6H PRN Cough #240 mL 06/12/24 2 mg-30 mg-10 mg/5 mL oral syrup (Bromfed DM) methylprednisolone 4 mg tablets in 4 mg PO DIRECTED 6 days #21 tabs 12/01/24 a dose pack Allergies Allergy/AdvReac Type Severity Reaction Status Date / Time acetaminophen (From Allergy Mild Verified 05/11/24 10:30 Darvocet-N) propoxyphene (From Allergy Mild Verified 05/11/24 10:30 Darvocet-N) codeine (CODEINE) Allergy Unknown Verified 05/11/24 10:30 morphine (MORPHINE) Allergy Unknown Verified 05/11/24 10:30 tramadol (TRAMADOL) Allergy Unknown Verified 05/11/24 10:30 hydromorphone (From Dilaudid) AdvReac Verified 05/11/24 10:30 PFSH PFS Disclaimer: The information contained in this section may have been updated after the patient was seen, as this information can be updated by other users. Medical History Anxiety and depression Bipolar disorder Schizoaffective disorder, bipolar type Sinusitis Social History Smoking Status: Current every day smoker tobacco type: cigarettes packs per day: 1 and smokeless tobacco alcohol intake: never substance use type: denies use current occupational status: other ROS Obtained: Yes All systems reviewed & no additional complaints except as documented Constitutional Constitutional: Reports poor appetite Eyes Eyes: Reports system reviewed and no additional complaints, except as documented ENT Ears, Nose, Mouth, and Throat: Reports as per HPI Cardiovascular Cardiovascular: Reports system reviewed and no additional complaints, except as documented and Denies chest pain Respiratory Respiratory: Denies shortness of breath, Denies chest congestion, Reports cough, Denies stridor and Denies wheezing Gastrointestinal Gastrointestingal: Reports system reviewed and no additional complaints, except as documented; Denies abdominal pain, diarrhea or vomiting Musculoskeletal Musculoskeletal: Reports system reviewed and no additional complaints, except as documented and Denies arthralgias Integumentary/Breasts Skin/Breast: Reports system reviewed and no additional complaints, except as documented and Denies rash Neurologic Neurologic: Denies paresthesias Allergic/Immunologic Allergic/Immunologic: Denies wheezing Physical Exam General General appearance: alert and in no apparent distress Eye Eye exam: Present normal appearance, PERRL and EOMI ENT ENT exam: Present mucous membranes moist and normal external ear exam Expanded ENT Exam External ear exam: Present normal external inspection TM/Canal exam: Bilateral TM: erythema and bulging Nose exam: Absent sinus tenderness Nasal speculum exam: Bilateral: normal Mouth exam: Present normal external inspection; Absent drooling Teeth exam: Present normal inspection Throat exam: Present tonsillar erythema and tonsillomegaly Neck Neck exam: Present normal inspection, full ROM and trachea midline; Absent tenderness, lymphadenopathy or thyromegaly Chest Chest inspection: Present normal inspection and symmetric chest wall rise; Absent tenderness or rash Respiratory Respiratory exam: Present normal lung sounds bilaterally; Absent respiratory distress, wheezes, stridor or accessory muscle use Cardiovascular Cardiovascular exam: Present regular rate, normal rhythm and normal heart sounds Abdominal Exam Abdominal exam: Present soft; Absent distention, tenderness, guarding, rebound or rigidity Extremities Exam Extremities exam: Present normal inspection, full ROM and normal capillary refill; Absent tenderness or calf tenderness Back Exam Back exam: Present normal inspection and full ROM; Absent tenderness Neurological Exam Neurological exam: Present alert and oriented X3 Psychiatric Psychiatric exam: Present normal affect and normal mood Skin Skin exam: Present warm, dry, intact and normal color Lymphatic Lymphatic Findings: no adenopathy Medical Decision Making Medical Records Screening: Per USPSTF and CDC recommendations, given the prevalence of disease in our region, it is our hospital?s policy to screen for HIV and viral Hepatitis for all patients aged 18 and over and those with ongoing risk factors. Ilya Inquiry Pt receiving controlled substance: No
[2024-06-12 16:26] LABS: UTC Strep Screen (Rapid) Negative (Negative)
[2024-06-12 16:28] LABS: UTC Influenza A Antigen Negative (Negative); UTC Influenza B Antigen Negative (Negative)
[2024-06-12 16:44] VITALS: BP 107/69; PULSE 67; RESP 20; TEMP 37
[2024-06-12 16:45] LABS: Coronavirus 19, PCR Not Detected (NotDetected); Influenza A, PCR Not Detected (NotDetected); Influenza B, PCR Not Detected (NotDetected)
== END 2024-06-12 16:45 | disposition home or self-care (01) ==
PROVIDERS: Emergency Provider Nurse Practitioner Family
DX: J32.9 Chronic sinusitis, unspecified (principal); J40 Bronchitis, not specified as acute or chronic; R53.1 Weakness; R09.81 Nasal congestion; R42 Dizziness and giddiness; R11.0 Nausea
CPT/HCPCS: 87636; 87804; 87880; 99212; G0381

== ENCOUNTER 2024-06-15 14:08 | Outpatient (CLI) | payer MEDICAID, SELFPAY ==
--- OUTSIDE RECORDS SUMMARY | 2024-06-15 14:11 | XMS_ITS | Encounter Summary ---
Author Organization [facility] Address [address] [place] [address] Care Team Providers Care Rotary Veneer Machine Operator Name Role Phone Provider, No Known Primary Care Provider Unavail able Reason for Visit * Reason Comments Nausea Encounter Details Date Type Department Care Team (Late st Contact Info) Description 02/04/2017 11:27 PM EDT - 02/05/2017 4:22 AM EDT Emergency [facility] [address] [place] [id number] Jace Baldwin MD [address] [facility] [place] [address] Non-intractable vomiting with nausea, unspecified vomiting type [...] sent through Care Everywhere. * GASTRITIS, ADULT (BELGIAN) * NAUSEA AND VOMITING, ADULT (BELGIAN) documented in this encounter Medications at Time [...] decreased urination. The patient went to the [facility] about a week and a half ago, [...] HCG, Urine, QL Negative Negative Lot Number [id number] Internal Positive Control Positive Internal Negative Control [...] pH, UA 6.0 5.0 - 8.0 Specific [place], UA 1.018 1.001 - 1.030 Glucose, UA [...] identified on lab evaluation. Previous labs from [place] reviewed and nothing of concern. Previous identified [...] LIPASE Routine 02/05/2017 1:43 AM EDT POCT ANH-CI-IBV-BUN-CR-HB- HCT STAT 02/05/2017 1:40 AM EDT URINALYSIS, [...] * Lipase (02/05/2017 1:43 AM EDT) Pathologist [facility] Lipase 27 6 - 51 U/L 02/05/2017 2:33 AM EDT [facility] Blood Venipuncture / Unknown 02/05/2017 1:43 AM EDT 02/05/2017 1:53 AM EDT us Jace Baldwin MD LAB BLOOD ORDERABLES Mary Beth l Result [facility]
[address] [place] [address], * (ABNORMAL) POC CHEM 8 (02/05/2017 1:40 AM EDT) Pathologist [facility] Glucose 84 70 - 130 mg/dL 02/05/2017 1:50 AM EDT [facility] BUN <3(L) 8 - 26 mg/dL 02/05/2017 1:50 AM EDT [facility] Creatinine 0.60 0.60 - 1.30 mg/dL 02/05/2017 1:50 AM EDT [facility] Sodium 141 138 - 146 mmol/L 02/05/2017 1:50 AM EDT [facility] POC Potassium 3.3(L) 3.5 - 4.9 mmol/L 02/05/2017 1:50 AM EDT [facility] Chloride 101 98 - 109 mmol/L 02/05/2017 1:50 AM EDT [facility] Total CO2 24 24 - 29 mmol/L 02/05/2017 1:50 AM EDT [facility] Hemoglobin 16.3 12.0 - 17.0 g/dL 02/05/2017 1:50 AM EDT [facility] Comment:Serial Number: [id number] Hematocrit 48 38 - 51 % 02/05/2017 1:50 AM EDT [facility] Ionized Calcium 1.26 1.20 - 1.32 mmol/L 02/05/2017 1:50 AM EDT [facility] Blood 02/05/2017 1:40 AM EDT 02/05/2017 1:50 AM EDT [facility] Raciel Baldwin MD POINT OF CARE TEST ORDERA BLES Final Result [facility]
[address] [place] [address], * (ABNORMAL) Urinalysis, Microscopic Only (02/05/2017 12:42 AM EDT) RBC, UA 3-6(A) None Seen, 0-2 /HPF 02/05/2017 1:37 AM EDT [facility] WBC, UA 0-2(A) None Seen /HPF 02/05/2017 1:37 AM EDT [facility] Bacteria, UA None Seen None Seen, Trace /HPF 02/05/2017 1:37 AM EDT [facility] Squamous Epithelial Cells, UA 0-2 None Seen, 0-2 /HPF 02/05/2017 1:37 AM EDT [facility] Hyaline Casts, UA 0-6 0 - 6 /LPF 02/05/2017 1:37 AM EDT [facility] Calcium Oxalate Crystals, UA Moderate/2+ None Seen /HPF 02/05/2017 1:37 AM EDT [facility] Methodology Manual Light Microscopy 02/05/2017 1:37 AM EDT [facility] Urine Urine specimen collection, clean catch / Unknown Collection / Unknown 02/05/2017 12:42 AM EDT 02/05/2017 12:51 AM EDT Jace Baldwin MD URINE ORDERABLES Final Re sult [facility]
[address] [place] [address], * (ABNORMAL) Urine Drug Screen (02/05/2017 12:42 AM EDT) THC, Screen, Urine Negative Negative 2016 1:18 AM EDT [facility] Phencyclidine (PCP), Urine Negative Negative 02/05/2017 1:18 AM EDT [facility] Cocaine Screen, Urine Negative Negative 02/05/2017 1:18 AM EDT [facility] Methamphetamine, Ur Negative Negative 02/05/2017 1:18 AM EDT [facility] Opiate Screen Negative Negative 02/05/2017 1:18 AM EDT [facility] Amphetamine Screen, Urine Negative Negative 02/05/2017 1:18 AM EDT [facility] Benzodiazepine Screen, Urine Negative Negative 02/05/2017 1:18 AM EDT [facility] Tricyclic Antidepressants Screen Negative Negative 02/05/2017 1:18 AM EDT [facility] Methadone Screen, Urine Negative Negative 02/05/2017 1:18 AM [facility] Barbiturates Screen, Urine Negative Negative 02/05/2017 1:18 AM [facility] Oxycodone Screen, Urine Negative Negative 02/05/2017 1:18 AM [facility] Propoxyphene Screen Negative Negative 02/05/2017 1:18 AM [facility] Buprenorphine, Screen, Urine Positive(A) Negative 02/05/2017 1:18 AM [facility] Urine Urine specimen collection, clean catch / Unknown Collection / Unknown 02/05/2017 12:42 AM EDT 02/05/2017 12:51 AM T [facility] - 02/05/2017 1:18 AM EDT Cutoff [...] Baldwin MD URINE ORDERABLES Final Re sult [facility]
[address] [place] [address], * (ABNORMAL) Urinalysis With / Culture If Indicated (02/05/2017 12:42 AM EDT) Color, UA Dark Yellow(A) Yellow, Straw 02/05/2017 1:17 AM EDT [facility] Appearance, UA Cloudy(A) Clear 02/05/2017 1:17 AM EDT [facility] pH, UA 6.0 5.0 - 8.0 02/05/2017 1:17 AM EDT [facility] Specific [place], UA 1.018 1.001 - 1.030 02/05/2017 1:17 AM EDT [facility] Glucose, UA Negative Negative 02/05/2017 1:17 AM EDT [facility] Ketones, UA Trace(A) Negative 02/05/2017 1:17 AM EDT [facility] Bilirubin, UA Small (1+)(A) Negative 02/05/2017 1:17 AM EDT [facility] Blood, UA Moderate (2+)(A) Negative 02/05/2017 1:17 AM EDT [facility] Protein, UA Negative Negative 02/05/2017 1:17 AM EDT [facility] Leuk Esterase, UA Negative Negative 02/05/2017 1:17 AM EDT [facility] Nitrite, UA Negative Negative 02/05/2017 1:17 AM EDT [facility] Urobilinogen, UA 1.0 E.U./dL 0.2 - 1.0 E.U./dL 02/05/2017 1:17 AM EDT [facility] Urine Urine specimen collection, clean catch / Unknown Collection / Unknown 02/05/2017 12:42 AM EDT 02/05/2017 12:51 AM EDT Jace Baldwin MD URINE ORDERABLES Final Re sult [facility]
[address] [place] [address], * Scan Slide (02/05/2017 12:41 AM EDT) RBC Morphology Normal Normal 02/05/2017 1:39 AM EDT [facility] WBC Morphology Normal Normal 02/05/2017 1:39 AM EDT [facility] Platelet Morphology Normal Normal 02/05/2017 1:39 AM EDT [facility] Blood Venipuncture / Unknown 02/05/2017 12:41 AM EDT 02/05/2017 12:51 AM EDT Jace Baldwin MD LAB BLOOD ORDERABLES Mary Beth l Result [facility]
[address] [place] [address], * (ABNORMAL) CBC Auto Differential (02/05/2017 12:41 AM EDT) WBC 6.53 3.50 - 10.80 10*3/mm3 02/05/2017 1:39 AM EDT [facility] RBC 4.56 3.89 - 5.14 10*6/mm3 02/05/2017 1:39 AM EDT [facility] Hemoglobin 14.4 11.5 - 15.5 g/dL 02/05/2017 1:39 AM EDT [facility] Hematocrit 43.4 34.5 - 44.0 % 02/05/2017 1:39 AM EDT [facility] MCV 95.2 80.0 - 99.0 fL 02/05/2017 1:39 AM [facility] MCH 31.6(H) 27.0 - 31.0 pg 02/05/2017 1:39 AM [facility] MCHC 33.2 32.0 - 36.0 g/dL 02/05/2017 1:39 AM [facility] RDW 13.8 11.3 - 14.5 % 02/05/2017 1:39 AM [facility] RDW-SD 48.0 37.0 - 54.0 fl 02/05/2017 1:39 AM [facility] MPV 11.9 6.0 - 12.0 fL 02/05/2017 1:39 AM [facility] Platelets 271 150 - 450 10*3/mm3 02/05/2017 1:39 AM [facility] Neutrophil % 57.4 41.0 - 71.0 % 02/05/2017 1:39 AM [facility] Lymphocyte % 32.3 24.0 - 44.0 % 02/05/2017 1:39 [facility] Monocyte % 6.3 0.0 - 12.0 % 02/05/2017 1:39 AM [facility] Eosinophil % 3.2(H) 0.0 - 3.0 % 02/05/2017 1:39 AM [facility] Basophil % 0.6 0.0 - 1.0 % 02/05/2017 1:39 AM [facility] Immature Grans % 0.2 0.0 - 0.6 % 02/05/2017 1:39 AM [facility] Neutrophils, Absolute 3.75 1.50 - 8.30 10*3/mm3 02/05/2017 1:39 AM [facility] Lymphocytes, Absolute 2.11 0.60 - 4.80 10*3/mm3 02/05/2017 1:39 AM [facility] Monocytes, Absolute 0.41 0.00 - 1.00 10*3/mm3 02/05/2017 1:39 AM EDT [facility] Eosinophils, Absolute 0.21 0.00 - 0.30 10*3/mm3 02/05/2017 1:39 AM EDT [facility] Basophils, Absolute 0.04 0.00 - 0.20 10*3/mm3 02/05/2017 1:39 AM EDT [facility] Immature Grans, Absolute 0.01 0.00 - 0.03 10*3/mm3 02/05/2017 1:39 AM EDT [facility] Blood Venipuncture / Unknown 02/05/2017 12:41 AM EDT 02/05/2017 12:51 AM EDT Jace Baldwin MD LAB BLOOD ORDERABLES Mary Beth l Result [facility]
[address] [place] [address], [place] [phone] * POCT , urine (02/05/2017 12:10 AM EDT) HCG, Urine, QL Negative Negative [facility] Lot Number [id number] [facility] Internal Positive Control Positive [facility] Internal Negative Control Negative [facility] Urine 02/05/2017 12:1 0 AM EDT Jace Baldwin MD POINT OF CARE TEST ORDERA BLES Final Result [facility]
[address] [place] [address], [place] [phone] * SCANNED - LABS (02/04/2017) [facility] LAB BLOOD ORDERABLES Final Re sult documented [...] RN) documented in this encounter Care Teams Rotary Veneer Machine Operator Relationship Specialty Start Date End Date Provider, [place] [address] PCP - General 02/04/17 09/03/17 documented as of this encounter
--- OUTSIDE RECORDS SUMMARY | 2024-06-15 14:11 | XMS_ITS | Clinical Summary ---
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
--- OUTSIDE RECORDS SUMMARY | 2024-06-15 14:11 | XMS_ITS | Encounter Summary ---
Author Organization [facility] Address [address] [place] [address] Care Team Providers Care Telephone Betting Clerk Name Role Phone Eugenio Ibarra MD Primary Care Provider [phone] Reason for Referral * Diagnostic Imaging (Routine) - Closed Specialty Diagnoses / Procedures Referred By Contac t Referred To Contact Radiology Diagnoses Umbilical hernia without obstruction and without gangrene Procedures CT Abdomen Pelvis Without Contrast Hoang Justice MD [address] [place] [address] Phone: tel: fax: [place] [address] Phone: tel: Referral ID Status Reason Start Date Expiration Date Visits Re quested Visits Authorized [id number] Closed 11/23/2019 01/06/2020 1 1 Reason for Visit * Diagnostic Imaging (Routine) - Closed Specialty Diagnoses / Procedures Referred By Contac t Referred To Contact Radiology Diagnoses Umbilical hernia without obstruction and without gangrene Procedures CT Abdomen Pelvis Without Contrast Hoang Justice MD [address] [place] [address] Phone: tel: fax: [address] [address] Phone: tel: Referral ID Status Reason Start Date Expiration Date Visits Re quested Visits Authorized [id number] Closed 11/23/2019 01/06/2020 1 1 Encounter Details Date Type Department Care Team (Late st Contact Info) Description 12/08/2019 10:32 AM EDT - 12/08/2019 11:59 PM EDT Hospital Encounter [facility] [address] [place] [phone] Hoang Justice MD [address] [facility] [address] [place] [id number] Umbilical hernia without obstruction and without gangrene [...] mL documented in this encounter Care Teams Telephone Betting Clerk Relationship Specialty Start Date End Date Eugenio Ibarra MD [address] [facility] [address] ATTN: [place] [address] PCP - General Emergency Medicine 09/04/17 documented as of this encounter
--- NOTE | 2024-06-15 14:14 | XR_ITS ---
FINAL REPORT CLINICAL HISTORY: bilateral hand CTS COMPARISON: None FINDINGS: RIGHT HAND Three views demonstrate no acute fracture or dislocation. The visualized joint spaces are normally aligned. The soft tissues are unremarkable. IMPRESSION: No acute bony abnormality. Reviewed, Interpreted and Dictated by Lane Ramos III, MD Transcribed by Melba Holm Authenticated and [facility]
--- NOTE | 2024-06-15 14:14 | XR_ITS ---
FINAL REPORT CLINICAL HISTORY: Bilateral Hand CTS COMPARISON: None FINDINGS: LEFT HAND Three views demonstrate no acute fracture or dislocation. The visualized joint spaces are normally aligned. The soft tissues are unremarkable. IMPRESSION: No acute process. Reviewed, Interpreted and Dictated by Lane Ramos III, MD Transcribed by Melba Holm Authenticated and . [facility]
== END 2024-06-15 23:59 | disposition home or self-care (01) ==
LOC: RAD 14:10
PROVIDERS: Visit Provider Orthopaedic Surgery
DX: M79.641 Pain in right hand (principal); M79.642 Pain in left hand
CPT/HCPCS: 73130

== ENCOUNTER 2024-10-13 22:50 | Emergency (ER) | payer MEDICAID, SELFPAY ==
[2024-10-13 23:08] VITALS: BP 116/70; PULSE 87; RESP 16; TEMP 36.8; O2SAT 100; BMI 30.2
--- NOTE | 2024-10-13 23:12 | ED_ITS ---
Discharge Plan Disposition Patient Disposition: Home, Self-Care Prescriptions Prescriptions: New levofloxacin 750 mg tablet 750 mg PO DAILY 6 Days Qty: 6 0RF fluconazole 150 mg tablet 150 mg PO WEEKLY 21 Days Qty: 3 0RF No Action buprenorphine-naloxone 2-0.5 mg tablet, sublingual 1 tab sublingual DAILY hydroxyzine pamoate 50 mg capsule 50 mg PO BID PRN (Reason: itching) Qty: 60 0RF varenicline tartrate 1 mg tablet PO sertraline 100 mg tablet PO Referrals Follow up/Referrals: Samantha Hu APRN [Primary Care Provider] - See instructions Mayte Sanchez DPM [Staff Physician] - See instructions Activity Restrictions/Add. Instructions Additional Instructions/Restrictions: Please take antibiotics and antifungal medications as prescribed. Please follow-up with your primary care provider with our public health educator Dr. Sanchez. Please return to the emergency department if you develop any new or worsening symptoms or become concerned for your health. Clinical Impressions Clinical Impression: Candidal intertrigo, Cellulitis of foot Instructions Patient Instructions: DI for Skin Abscess Print Language Print Language: Turkish Discharge ED Provider: Christofer Umaña General Adult HPI General Chief complaint: Skin/Abscess/Foreign Body Stated complaint: Right little toe,ring toe,red,swollen with drainag Time Seen by Provider: 10/13/24 23:11 History of Present Illness HPI narrative: 33-year-old female with history of IV drug use, though reports she has been clean for a year and is on Suboxone, presents for right foot pain swelling redness. She reports that she has athlete's foot pretty bad in general and that today she started noticing her right 4th/5th interspace started hurting more than normal. When she looked at it the foot was hot red and swollen on the right side. She reports that there was some pus that came out of it. Seems to be worsening over the course of the day. She denies any fever at home, denies any other significant past medical history. Related Data Home Medications ?Medication ?Instructions ?Recorded ?Confirmed buprenorphine 2 mg-naloxone 0.5 mg 1 tab sublingual DAILY 05/11/24 09/19/24 sublingual tablet sertraline 100 mg tablet mg PO 09/19/24 09/19/24 varenicline tartrate 1 mg tablet mg PO 09/19/24 09/19/24 Previous Rx's ?Medication ?Instructions ?Recorded hydroxyzine pamoate 50 mg capsule 50 mg PO BID PRN itching #60 caps 05/11/24 fluconazole 150 mg tablet 150 mg PO WEEKLY 3 weeks #3 tabs 10/14/24 levofloxacin 750 mg tablet 750 mg PO DAILY 6 days #6 tabs 10/14/24 Allergies Allergy/AdvReac Type Severity Reaction Status Date / Time acetaminophen (From Allergy Mild Verified 09/19/24 09:14 Darvocet-N) propoxyphene (From Allergy Mild Verified 09/19/24 09:14 Darvocet-N) codeine (CODEINE) Allergy Unknown Verified 09/19/24 09:14 morphine (MORPHINE) Allergy Unknown Verified 09/19/24 09:14 tramadol (TRAMADOL) Allergy Unknown Verified 09/19/24 09:14 hydromorphone (From Dilaudid) AdvReac Verified 09/19/24 09:14 [facility] Disclaimer: The information contained in this section may have been updated after the patient was seen, as this information can be updated by other users. Medical History Anxiety and depression Bipolar disorder Schizoaffective disorder, bipolar type Sinusitis Social History Smoking Status: Current every day smoker tobacco type: cigarettes packs per day: 1 and smokeless tobacco alcohol intake: never substance use type: denies use current occupational status: other Travel in the last 8 weeks: None Other Medical History Have you received the Flu Vaccine for this season: No Have you received the Pneumonia Vaccine: No ROS Obtained: Yes All systems reviewed & no additional complaints except as documented Physical Exam General General appearance: alert and in no apparent distress Head Head exam: atraumatic and normocephalic Eye Eye exam: Present normal appearance, PERRL and EOMI ENT ENT exam: Present normal oropharynx and normal external ear exam Neck Neck exam: Present normal inspection and full ROM Chest Chest inspection: Present normal inspection and symmetric chest wall rise; Absent tenderness Respiratory Respiratory exam: Present normal lung sounds bilaterally; Absent respiratory distress Cardiovascular Cardiovascular exam: Present regular rate and normal rhythm Abdominal Exam Abdominal exam: Present soft; Absent distention, tenderness or guarding Extremities Exam Extremities exam: Present other (Right foot: Swollen from the midfoot distally with erythema predominantly on the right side. There is intertrigo noted with significant tenderness and some purulence in the right 4th/5th interspace) Back Exam Back exam: Present normal inspection; Absent tenderness Neurological Exam Neurological exam: Present alert and oriented X3; Absent motor sensory deficit Psychiatric Psychiatric exam: Present normal affect and normal mood Skin Skin exam: Present warm, dry and normal color Lymphatic Lymphatic Findings: no adenopathy Medical Decision Making Medical Records Medical records reviewed: Yes I reviewed the patient's medical records. Screening: Per USPSTF and CDC recommendations, given the prevalence of disease in our region, it is our hospital?s policy to screen for HIV and viral Hepatitis for all patients aged 18 and over and those with ongoing risk factors. Ilya Inquiry Pt receiving controlled substance: No Ilya was queried for this patient: No Vital Signs: 10/13/24 23:08 10/13/24 23:16 10/14/24 01:39 Temperature 98.3 F 98.0 F Temperature Source Oral Pulse Rate 85 68 Pulse Rate [Left] 87 Respiratory Rate 16 18 18 Blood Pressure 103/69 L 130/87 Blood Pressure [Right Arm] 116/70 Blood Pressure Mean [Right Arm] 85 Blood Pressure Source [Right Arm] Automatic Cuff Blood Pressure Position [Right Arm] Supine 02 Sat by Pulse Oximetry 100 100 Oxygen Delivery Method Room Air Room Air Lab Data Lab results reviewed: Yes I reviewed the patient's lab results. Lab Results 10/13/24 23:52: WBC 8.9, RBC 4.01 L, Hgb 12.1 L, Hct 35.9 L, MCV 89.5, MCH 30.2, MCHC 33.7, RDW 12.8, Plt Count 306, MPV 10.3, Neut % (Auto) 64.8, Lymph % (Auto) 24.2, Meeker % (Auto) 6.9, Eos % (Auto) 3.3, Baso % (Auto) 0.6, Neut # (Auto) 5.7, Lymph # (Auto) 2.1, Meeker # (Auto) 0.6, Eos # (Auto) 0.3, Baso # (Auto) 0.1, ESR 17, Sodium 137, Potassium 3.7, Chloride 105, Carbon Dioxide 22, Anion Gap 13.7, BUN 8, Creatinine 0.70, Estimated Creat Clear 130, Estimated GFR 96, Est GFR ( Amer) 116, Glucose 102 H, Calcium 9.1, Total Bilirubin 0.7, AST 46 H, ALT 35, Alkaline Phosphatase 65, C-Reactive Protein 8.1 H, Total Protein 6.9, Albumin 4.1, Globulin 2.8, Albumin/Globulin Ratio 1.5 10/13/24 23:52 10/13/24 23:52 Orders (Tests/Meds): ED MEDICATIONS Discontinued Medications Generic Name Dose Route Start Last Admin Trade Name Abdoulq PRN Reason Stop Dose Admin Dalbavancin 1,500 mg/ Dextrose 250 mls @ 500 mls/hr 10/14/24 00:06 10/14/24 00:23 IV 10/14/24 00:07 500 mls/hr ONCE ONE Administration Levofloxacin 750 mg 10/14/24 01:10 10/14/24 01:34 Levofloxacin 750 Mg Tablet PO 10/14/24 01:11 750 mg ONCE ONE Administration ORDERS Category Date Time Status Foot XR right minimum 3 views [XR foot RT min 3V] Stat Exams 10/13/24 23:27 Completed CBC w/Auto Diff [Complete Blood Count Auto Diff] Stat Lab 10/13/24 23:52 Completed CMP [Comprehensive Metabolic Panel] Stat Lab 10/13/24 23:52 Completed CRP [C-Reactive Protein] Stat Lab 10/13/24 23:52 Completed ESR [Erythrocyte Sedimentation Rate] Stat Lab 10/13/24 23:52 Completed Blood Culture Stat Micro 10/13/24 23:52 Received Wound Culture and Gram Stain Stat Micro 10/14/24 00:00 Received Medical Decision Narrative: 33-year-old female with history of athlete's foot presents for somewhat rapidly progressing right lateral distal foot swelling, erythema, tenderness with some purulence noted in the 4th/5th interspace. No fluctuant abscess noted. History was obtained via interactive discussion with patient. On arrival, patient is [afebrile, hemodynamically stable, satting appropriately, alert, oriented x4, GCS 15], moving all extremities spontaneously. Differential includes but is not limited to abscess, cellulitis, osteomyelitis, fungal infection. Workup initiated including CBC CMP ESR CRP blood cultures wound culture. On re-evaluation, patient [remains afebrile, HD stable.] Laboratory workup independently interpreted by me and significant for no significant leukocytosis or inflammatory marker elevation.. Imaging independently interpreted by me and significant for no acute bony changes. See radiology read for full review of final results. admission for IV antibiotic therapy was considered given the somewhat rapid progression of the erythema, but deemed unnecessary given she has not trialed antibiotics yet, had evidence of deep space infection on imaging or exam. Given patient history, exam and workup, patient's presentation most likely represents intertrigo and associated cellulitis. Patient was initiated on Dalvance, Levaquin, fluconazole and discharged with instructions to follow-up with our public health educator. Procedures Risk/Benefits of Procedure(s) Were Explained: Yes Critical Care Critical Care Time Critical Care Time: No
[2024-10-13 23:16] VITALS: BP 103/69; PULSE 85; RESP 18; O2SAT 100
--- NOTE | 2024-10-13 23:22 | PC.NURSE ---
ed provider at the bedside
--- NOTE | 2024-10-13 23:27 | XR_ITS ---
PROCEDURE INFORMATION: Exam: XR Right Foot Exam date and time: 10/13/2024 11:53 PM Age: 33 years old Clinical indication: Pain; Foot; Right; Additional info: Infected 4/5th web space TECHNIQUE: Imaging protocol: Radiologic exam of the right foot. Views: 3 or more views. COMPARISON: CR XR KNEE RT 3V 07/17/2019 4:28 PM FINDINGS: Bones/joints: No fracture. Normal alignment. No erosive changes. Soft tissues: No air collection. No radiopaque foreign body. IMPRESSION: No acute findings.
--- NOTE | 2024-10-13 23:58 | PC.NURSE ---
Lab contacted and asked to obtain second set of blood cultures at this time.
[2024-10-14] LABS: Basophils # 0.1 K/mm3 (0-0.2); Basophils % 0.6 % (0.1-2.0); Eosinophils # 0.3 K/mm3 (0.0-0.4); Eosinophils % 3.3 % (0.1-12.0); Hematocrit 35.9 % (37.0-47.0); Hemoglobin 12.1 g/dL (12.2-16.2); Lymphocytes # 2.1 K/mm3 (0.7-4.5); Lymphocytes % 24.2 % (10-50); Mean Corpuscular HGB Conc 33.7 g/dL (31.8-35.4); Mean Corpuscular Hemoglobin 30.2 pg (27.0-31.2); Mean Corpuscular Volume 89.5 fl (81-99); Mean Platelet Volume 10.3 fl (7.4-10.4); Monocytes # 0.6 K/mm3 (0.1-1.0); Monocytes % 6.9 % (1.7-9.3); Neutrophils # 5.7 K/mm3 (1.8-7.8); Neutrophils % 64.8 % (37.0-80.0); Platelet Count 306 K/mm3 (142-424); Red Blood Count 4.01 M/mm3 (4.20-5.40); Red Cell Distribution Width 12.8 % (11.5-17.5); White Blood Count 8.9 K/mm3 (4.8-10.8)
[2024-10-14] MEDS: DALBAVANCIN HCL 1,500 MG in DEXTROSE 5 % IN WATER 250 ML 500 MG IV (00:23)
[2024-10-14 00:49] LABS: Alanine Aminotransferase 35 U/L (12-78); Albumin Level 4.1 g/dl (3.5-5.0); Albumin/Globulin Ratio 1.5 (1.1-1.8); Alkaline Phosphatase 65 U/L (38-126); Anion Gap 13.7 mEq/L (5-15); Aspartate Amino Transferase 46 U/L (14-36); Bilirubin,Total 0.7 mg/dl (0.2-1.3); Blood Urea Nitrogen 8 mg/dl (7-17); Calcium 9.1 mg/dl (8.4-10.2); Carbon Dioxide 22 mmol/L (22.0-30.0); Chloride 105 mmol/L (98-107); Creatinine Clearance Estimated 130 mL/min (50-200); Estimated Glomerular Filt Rate 96 ml/min (>60); GFR (African American) 116 ML/MIN (>60); Globulin 2.8 g/dL (1.3-3.2); Glucose 102 mg/dl (74-100); Potassium 3.7 mmoL/L (3.5-5.1); Sodium 137 mmol/L (136-145); Total Protein,Serum 6.9 g/dl (6.3-8.2)
[2024-10-14 00:54] LABS: C-Reactive Protein 8.1 mg/L (0-4)
--- NOTE | 2024-10-14 01:01 | PC.NURSE ---
antibiotic complete at this time
--- NOTE | 2024-10-14 01:11 | PC.NURSE ---
provider at the bedside
[2024-10-14 01:12] LABS: Erythrocyte Sedimentation Rate 17 mm/hr (0-20)
[2024-10-14] MEDS: levoFLOXacin 750 MG TABLET PO (01:34)
[2024-10-14 01:39] VITALS: BP 130/87; PULSE 68; RESP 18; TEMP 36.7; O2SAT 100
== END 2024-10-14 01:39 | disposition home or self-care (01) ==
PROVIDERS: Emergency Provider Emergency Medicine; PCP Nurse Practitioner Family
DX: L03.115 Cellulitis of right lower limb (principal); B37.2 Candidiasis of skin and nail; M79.671 Pain in right foot; F17.210 Nicotine dependence, cigarettes, uncomplicated
CPT/HCPCS: 73630; 80053; 85025; 85651; 86140; 87040; 87070; 87077; 87186; 87205; 96365; 99283; J0875; J7060

== ENCOUNTER 2024-12-14 16:38 | Outpatient (CLI) | payer MEDICAID, SELFPAY ==
--- NOTE | 2024-12-14 | MR_ITS ---
PROCEDURE INFORMATION: Exam: MR Head Without and With Contrast; Internal Auditory Canals Exam date and time: 12/14/2024 5:07 PM Age: 34 years old Clinical indication: Pain; Headache; Additional info: Headaches, dizziness TECHNIQUE: Imaging protocol: MR of the head without and with intravenous contrast. Exam focused on the internal auditory canals. Contrast material: ISOVUE; Contrast volume: 17 ml; Contrast route: IV; COMPARISON: No relevant prior studies available. FINDINGS: Brain: There are paucity of punctate white matter lesions in the bilateral frontal lobes which are nonspecific. No acute process, mass, or bleed. Cerebral ventricles: No ventriculomegaly. Pituitary gland and sella: Incidental note is made of an empty sella. Mastoid air cells: Unremarkable. No effusions. Internal auditory canals: Unremarkable. 7th and 8th cranial nerves are unremarkable. No abnormal masses. Paranasal sinuses: There is [id number] mucosal thickening of the sinuses. No air-fluid level identified. Bones: Unremarkable. Other findings: No abnormal enhancement identified. IMPRESSION: 1. No acute process, mass, or bleed. 2. Paucity of punctate white matter lesions too small in size and few in number to characterize. Although nonspecific, gliosis, MS, Lyme, migraine or vasculitis could be considered depending on clinical context. Small-vessel ischemic change is possible although atypical given patient's age.
[2024-12-14] MEDS: 0.9 % SODIUM CHLORIDE 50 ML VIAL 10 ML IV (17:32)
[2024-12-14] MEDS: SODIUM CHLORIDE 0.9% 10ML SYR (RAD ONLY) 10 ML IV (17:32)
[2024-12-14] MEDS: GADOTERIDOL INJ 20ML SYRINGE 17 ML IV (17:32)
== END 2024-12-14 23:59 | disposition home or self-care (01) ==
LOC: RAD 16:39
PROVIDERS: PCP Nurse Practitioner Family; Visit Provider Nurse Practitioner Family
DX: R90.82 White matter disease, unspecified (principal); E22.1 Hyperprolactinemia; R51.9 Headache, unspecified; R42 Dizziness and giddiness
CPT/HCPCS: 70553; A9576

== ENCOUNTER 2025-01-31 16:50 | Outpatient (CLI) | payer MEDICAID, SELFPAY ==
--- OUTSIDE RECORDS SUMMARY | 2025-01-25 11:43 | XMS_ITS | Encounter Summary ---
Author Organization [facility] Address [address] [place] [address] Care Team Providers Care Picker/Puller Name Role Phone Pcp, No Primary Care Provider Unavailabl e Reason for Referral * Consultation (Urgent) - Pending Review Specialty Diagnoses / Procedures Referred By Jose street Referred To Contact Hand Surgery Diagnoses Avulsion of finger, initial encounter Open nondisplaced fracture of distal phalanx of left middle finger, initial encounter Princess Paredes PA [address] [address] Phone: tel: fax: Surjit Fontaine MD [address] [address] Phone: tel: fax: Referral ID Status Reason Start Date Expiration Date Visits Requested Visits Authorized [id number] Pending Review Specialty Services Required 01/25/2025 07/27/2026 1 1 Scheduling Instructions Follow-up with Dr. Fontaine in 1-2 weeks at outpatient hand clinic Reason for Visit * Reason Comments Finger Injury Encounter Details Date Type Department Care Team (Late st Contact Info) Description 01/25/2025 11:43 AM EDT - 01/25/2025 3:10 PM EDT Emergency [facility] Emergency Department [address] [place] [address] Francesca Baeza MD [address] [place] [address] Avulsion of finger, initial encounter (Primary Dx); [...] Paredes PA - 01/25/2025 3:10 PM EDT [facility] Department of Surgery Division of Plastic Surgery [...] from the original note were not included. [id number] Open Hand Fracture (Adult) You have a [...] lead to infections. ? You may use unqe-wgl-vddrbqd pain medicine to control pain, unless another [...] chills. Last Reviewed Date: 2024 00:00:00 ?? [phone] The [employer]. All rights reserved. This information is not [...] has no other complaints at this time. school psychology professor used: No MAIN ED NOTE//Winnie Storm DO: I assumed full responsibility for this patient after transfer to Main ED from [facility]. I personally performed my own history, ROS, and physical. I agree with the above [facility] documentation with the following additions/exceptions: Patient [...] your Keflex as prescribed. Disposition Discharge AVS (Panamanian Snapshot) - Printed 01/25/2025 - [1] No [...] Office Visit [facility] [address] [place] [address] Surjit Fontaine MD [address] [place] [phone] Scheduled Referrals Name Type Priority Associated Diagnoses [...] RN) documented in this encounter Care Teams Picker/Puller Relationship Specialty Start Date End Date Pcp, Britany [address] [place] [address] PCP - General Family Medicine 01/25/25 documented as of this encounter
--- OUTSIDE RECORDS SUMMARY | 2025-01-31 16:52 | XMS_ITS | Clinical Summary ---
Author Organization [facility] Address [address] [place] [address] Care Team Providers Care Bow Maker Gift Wrapping Name Role Phone Eugenio Ibarra MD Primary Care Provider Allergies Active Allergy Reactions Criticality Noted Date [...] 68 02/05/2017 4:21 AM EDT Temperature 36.8 C (98.3 F) 02/04/2017 11:10 PM EDT Respiratory Rate 18 02/05/2017 4:21 AM EDT Oxygen Saturation 98% 02/05/2017 4:21 AM EDT Inhaled Oxygen Concentration - - Weight 80.3 kg (177 lb) 02/04/2017 11:10 PM EDT Height 152.4 cm (5') 02/04/2017 11:10 PM EDT Body Mass Index 34.57 02/04/2017 11:10 PM EDT Plan of Treatment Health Maintenance Due Date Last Done Comments Annual Gynecologic Pelvic an d Breast Exam 1989 TDAP/TD VACCINES (1 - Tdap) 2008 ANNUAL PHYSICAL 02/04/2017 HEPATITIS C SCREENING 02/04/2017 COVID-19 Vaccine ( - 2023-2 5 season) 2024 INFLUENZA VACCINE 04/12/2025 Pneumococcal Vaccine 0-49 Aged Out 04/06/2018 No longer eligible based on patient's age to complete this topic Insurance [id number] [place] [address] [place] [id number] [facility] MEDICAID [place] Advance Directives Documents on File Type Date Recorded Patient Risk Assessment Consultant Expl anation LIVING WILL - SCAN 09/09/2017 3:44 PM RIKA NG WILL 09/04/17 Care Teams Bow Maker Gift Wrapping Relationship Specialty Start Date End Date Eugenio Ibarra MD [facility] [address] ATTN: [place] [address] PCP - General Emergency Medicine 09/04/17
--- OUTSIDE RECORDS SUMMARY | 2025-01-31 16:52 | XMS_ITS | Clinical Summary ---
Author Organization [facility] Address [address] [place] [address] Care Team Providers Care Coin Machine Assembler Name Role Phone Pcp, No Primary Care Provider Unavailabl e Allergies Active Allergy Reactions Criticality Noted Date Comments Morphine Hives Medium 01/25/2025 Medications acetaminophen (Tylenol) 500 MG tablet Take 2 tablets by mouth every 6 hours as needed (pain) for up to 10 days. 40 tablet 5 02/05/20 25 Active cephalexin (Keflex) 500 MG capsuleIndication s:Avulsion of finger, initial encounter,Open nondisplaced fracture of distal phalanx of left middle finger, initial encounter Take 1 capsule by mouth 4 times a day for 5 days. 20 capsule 5 01/31/20 25 Encounters Date Type Department Care Team Description 01/31/2025 Travel 01/30/2025 Telephone [facility] [address] [place] [address] Letty Walker RN 01/26/2025 Telephone [facility] [address] [place] [phone] Surjit Fontaine MD 01/25/2025 11:43 AM EDT - 01/25/2025 3:10 PM EDT Emergency [facility] Emergency Department [address] [place] [address] Francesca Baeza MD Avulsion of finger, initial encounter (Primary Dx); Open nondisplaced fracture of distal phalanx of left middle finger, initial encounter Discharge Disposition: Home or Self Care 01/25/2025 Travel from Last 3 Months Social History Tobacco Use Types Packs/Day Years [...] Mass Index 31.87 01/25/2025 11:24 AM EDT Plan of Treatment Upcoming Encounters Date Type Department Care Team (Late st Contact Info) Description 02/07/2025 1:10 PM EDT Office Visit [facility] [address] [place] [address] Surjit Fontaine MD [address] [address] Health Maintenance Due Date Last Done Comments [facility]-Depression Screening 1989 [facility]-HIV Screening 1989 [facility]-Hepatitis C Screening 1989 [facility]-/Child/Adol SDOH Screenings 1989 [facility]-Obesity Intervention 11/29/1995 [facility]-Varicella Vaccines (1 of 2 - 13+ 2-dose series) 2002 HPV Vaccines (1 - 3-dose series) 2004 [facility]- SDOH Screenings 11/29/2007 [facility]-Adult SDOH Screenings 11/29/2007 [facility]-DTaP,Tdap,and Td Vaccine s (1 - Tdap) 2008 [facility]-Pap Smear 2010 [facility]-Cervical Cancer Screening 11/29/2019 [facility]-HPV/Cotest 11/29/2019 [id number] Vaccine ( season) 2024 [facility]-Influenza Vaccine (#1) 03/13/202506/06, 05/23/2009, 07/14/2006 [facility]-Zoster Vaccines (1 of 2) 11/29/2039 [facility]-Hepatitis B Vaccines Completed 018, 05/26/2017, 04/17/2017 [facility]-Pneumococcal Vaccine: Pediatrics (0 to 5 Years) and At-Risk Patients (6 to 49 Years) Aged Out 04/06/2018 No longer eligible b ased on patient's age to complete this topic [facility]-HIB Vaccines Aged Out No longer e ligible based on patient's age to complete this topic [facility]-Hepatitis A Vaccines Aged Out No longer eligible based on patient's age to complete this topic [facility]-IPV Vaccines Aged Out No longer e ligible based on patient's age to complete this topic [facility]-Rotavirus Vaccines Aged Out No lo nger eligible based on patient's age to complete this topic Procedures Procedure Name Priority Date/Time Associated Diagnosis Comments XR HAND LEFT 3+ VIEWS STAT 01/25/2025 12:07 PM EDT from Last 3 Months Results * XR Hand 3+ Views Left [...] Cortez MD on 01/25/2025 1:18 PM Marques Aguila MD IMG XR PROCEDURES Final Resul t from Last 3 Months [facility] [id number] [employer] [facility] MEDICAID GENERIC WORKERS COMP Care Teams Coin Machine Assembler Relationship Specialty Start Date End Date Pcp, Britany [address] [place] [address] PCP - General Family Medicine 01/25/25
--- OUTSIDE RECORDS SUMMARY | 2025-01-31 16:52 | XMS_ITS | Encounter Summary ---
Author Organization [facility] Address [address] [place] [address] Care Team Providers Care Scale Attendant Name Role Phone Pcp, No Primary Care Provider Unavailabl e Encounter Details Date Type Department Care Team (Latest Contact Info) Description 01/31/2025 Travel Social History Tobacco Use Types Packs/Day Years Used Date Smoking Tobacco: Never Assessed Comments Unknown Sex and Gender Information Value Date Recorded Sex Assigned at Not on file Legal Sex Female 8:35 PM EDT Gender Identity Not on file Sexual Orientation Not on file documented as of this encounter Plan of Treatment Upcoming Encounters Date Type Department Care Team (Late st Contact Info) Description 02/07/2025 1:10 PM EDT Office Visit [facility] [address] [place] [address] Surjit Fontaine MD [address] [address] documented as of this encounter Visit Diagnoses Not on filedocumented in this encounter Care Teams Scale Attendant Relationship Specialty Start Date End Date Pcp, No [address] [place] [address] PCP - General Family Medicine 01/25/25 documented as of this encounter
--- OUTSIDE RECORDS SUMMARY | 2025-01-31 16:52 | XMS_ITS | Encounter Summary ---
Author Organization [facility] Address [address] [place] [address] Care Team Providers Care Restaurant District Manager Name Role Phone Pcp, No Primary Care Provider Unavailabl e Encounter Details Date Type Department Care Team (Late st Contact Info) Description 01/30/2025 Telephone [facility] [address] [place] [address] Letty Walker RN [facility] Social History Tobacco Use Types Packs/Day Years Used Date Smoking Tobacco: Never Assessed Comments Unknown Sex and Gender Information Value Date Recorded Sex Assigned at Not on file Legal Sex Female 8:35 PM EDT Gender Identity Not on file Sexual Orientation Not on file documented as of this encounter Miscellaneous Notes * Telephone Encounter - Letty Walker RN - 01/30/2025 10:15 AM EDT Per notes okay to wash hand with warm soapy water. Okay to use hibicleanse too. documented in this encounter Plan of Treatment Upcoming Encounters Date Type Department Care Team (Late st Contact Info) Description 02/07/2025 1:10 PM EDT Office Visit [facility] [address] [place] [address] Surjit Fontaine MD [address] [phone] documented as of this encounter Visit Diagnoses Not on filedocumented in this encounter Care Teams Restaurant District Manager Relationship Specialty Start Date End Date Pcp, No [address] [place] [address] PCP - General Family Medicine 01/25/25 documented as of this encounter
--- OUTSIDE RECORDS SUMMARY | 2025-01-31 16:53 | XMS_ITS | Encounter Summary ---
Author Organization [facility] Address [address] [place] [address] Care Team Providers Care Disability Insurance Hearing Officer Name Role Phone Pcp, No Primary Care Provider Unavailabl e Encounter Details Date Type Department Care Team (Latest Contact Info) Description 01/25/2025 Travel Social History Tobacco Use Types Packs/Day Years Used Date Smoking Tobacco: Never Assessed Comments Unknown Sex and Gender Information Value Date Recorded Sex Assigned at Not on file Legal Sex Female 8:35 PM EDT Gender Identity Not on file Sexual Orientation Not on file documented as of this encounter Functional Status * Calculated C-SSRS [...] Leal RN documented as of this encounter Plan of Treatment Upcoming Encounters Date Type Department Care Team (Late st Contact Info) Description 02/07/2025 1:10 PM EDT Office Visit [facility] [address] [place] [address] Surjit Fontaine MD [address] [place] [address] documented as of this encounter Visit Diagnoses Not on filedocumented in this encounter Care Teams Disability Insurance Hearing Officer Relationship Specialty Start Date End Date Pcp, Britany [address] [place] [address] PCP - General Family Medicine 01/25/25 documented as of this encounter
--- OUTSIDE RECORDS SUMMARY | 2025-01-31 16:53 | XMS_ITS | Encounter Summary ---
Author Organization [facility] Address [address] [place] [address] Care Team Providers Care Commercial Lines Account Manager Name Role Phone Pcp, No Primary Care Provider Unavailabl e Encounter Details Date Type Department Care Team (Late st Contact Info) Description 01/26/2025 Telephone [facility] [address] [place] [address] Surjit Fontaine MD [address] [address] Social History Tobacco Use Types Packs/Day Years Used Date Smoking Tobacco: Never Assessed Comments Unknown Sex and Gender Information Value Date Recorded Sex Assigned at Not on file Legal Sex Female 8:35 PM EDT Gender Identity Not on file Sexual Orientation Not on file documented as of this encounter Miscellaneous Notes * Telephone Encounter - Bindu Mckeon RN - 01/26/2025 12:49 PM EDT Called and spoke with pt, asking what exactly she needed, if she needed clearance to go back or an excuse to cover the time off between the ED visit and her follow-up appointment. With her working [employer] and us not having evaluated her healing progress, we are uncomfortable releasing her backto work without evaluating the injury. Wrote the work excuse and sent through [employer]. * Telephone Encounter - Karen Bernard - 01/26/2025 12:33 PM EDT Patient Phone Message Reason for Call: ED follow up scheduled with Dr. Fontaine 02/07/25 for open nondisplaced fracture of distal phalanx of left middle finger. This visit is workers comp related and the patient is seeking a return to work statement. 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 Please upload in [employer]. Thank you! Best contact number and optimal time of day to reach caller: [phone] Note: Please do not reply to this message. Follow-up communication and further actions as a result of this message need to be communicated with the patient directly, if the patient is not active onMyChart. If the patient is active on MyChart, they will receive notification of the communication/outcome via [employer]. documented in this encounter Plan of Treatment Upcoming Encounters Date Type Department Care Team (Late st Contact Info) Description 02/07/2025 1:10 PM EDT Office Visit [facility] [address] [place] [address] Surjit Fontaine MD [address] [address] documented as of this encounter Visit Diagnoses Not on filedocumented in this encounter Care Teams Commercial Lines Account Manager Relationship Specialty Start Date End Date Pcp, [place] [address] PCP - General Family Medicine 01/25/25 documented as of this encounter
== END 2025-01-31 23:59 | disposition home or self-care (01) ==
LOC: LAB 16:51
PROVIDERS: PCP Nurse Practitioner Family; Visit Provider Nurse Practitioner Family
DX: Z12.31 Encounter for screening mammogram for malignant neoplasm of breast (principal); E22.1 Hyperprolactinemia; E66.9 Obesity, unspecified; F17.210 Nicotine dependence, cigarettes, uncomplicated; F32.A Depression, unspecified; Z11.4 Encounter for screening for human immunodeficiency virus [HIV]; Z11.59 Encounter for screening for other viral diseases; Z13.0 Encounter for screening for diseases of the blood and blood-forming organs and certain disorders involving the immune mechanism; Z13.1 Encounter for screening for diabetes mellitus; Z13.220 Encounter for screening for lipoid disorders; Z13.228 Encounter for screening for other metabolic disorders

== ENCOUNTER 2025-02-01 08:04 | Outpatient (CLI) | payer MEDICAID, SELFPAY ==
--- OUTSIDE RECORDS SUMMARY | 2025-01-25 11:43 | XMS_ITS | Encounter Summary ---
Author Organization [facility] Address [address] [place] [address] Care Team Providers Care Gear Tooth Grinding Machine Operator Name Role Phone Pcp, No Primary Care Provider Unavailabl e Reason for Referral * Consultation (Urgent) - Pending Review Specialty Diagnoses / Procedures Referred By Jose street Referred To Contact Hand Surgery Diagnoses Avulsion of finger, initial encounter Open nondisplaced fracture of distal phalanx of left middle finger, initial encounter Princess Paredes PA [address] [address] Phone: tel: fax: Surjit Fontaine MD [address] [address] Phone: tel: fax: Referral ID Status Reason Start Date Expiration Date Visits Requested Visits Authorized [id number] Pending Review Specialty Services Required 01/25/2025 07/27/2026 1 1 Scheduling Instructions Follow-up with Dr. Fontaine in 1-2 weeks at outpatient hand clinic Reason for Visit * Reason Comments Finger Injury Encounter Details Date Type Department Care Team (Late st Contact Info) Description 01/25/2025 11:43 AM EDT - 01/25/2025 3:10 PM EDT Emergency [facility] Emergency Department [address] [place] [address] Francesca Baeza MD [address] [place] [address] Avulsion of finger, initial encounter (Primary Dx); [...] Paredes PA - 01/25/2025 3:10 PM EDT [facility] Department of Surgery Division of Plastic [...] from the original note were not included. [id number] Open Hand Fracture (Adult) You have a [...] lead to infections. ? You may use ycil-xmh-wgifrvh pain medicine to control pain, unless another [...] chills. Last Reviewed Date: 2024 00:00:00 ?? [id number] The [employer]. All rights reserved. This information is not intended as a substitute for professional medical care. Always follow your healthcare professional's instructions. * ED Provider Notes - Winnie Storm DO - 01/25/2025 11:14 AM EDT - HPI Chief Complaint Patient presents with ??? Finger Injury PIT NOTE Haydee Pritchard is a 34 y.o. [...] has no other complaints at this time. immunopathologist used: No MAIN ED NOTE//Winnie Storm DO: I assumed full responsibility for this patient after transfer to Main ED from [facility]. I personally performed my own history, ROS, and physical. I agree with the above [facility] documentation with the following additions/exceptions: Patient [...] and Affect: Mood normal. Behavior: Behavior normal. Giovana Coma Scale Score: 15 ED Course & [...] your Keflex as prescribed. Disposition Discharge AVS (Trinidadian Snapshot) - Printed 01/25/2025 - [1] No [...] Description 02/07/2025 1:10 PM EDT Office Visit [facility] [address] [place] [address] Surjit Fontaine MD [address] [place] [address] Scheduled Referrals Name Type Priority Associated Diagnoses [...] RN) documented in this encounter Care Teams Gear Tooth Grinding Machine Operator Relationship Specialty Start Date End Date Pcp, Britany [address] [place] [address] PCP - General Family Medicine 01/25/25 documented as of this encounter
--- OUTSIDE RECORDS SUMMARY | 2025-02-01 08:17 | XMS_ITS | Encounter Summary ---
Author Organization [facility] Address [address] [place] [address] Care Team Providers Care Monkey Breeder Name Role Phone Pcp, No Primary Care Provider Unavailabl e Encounter Details Date Type Department Care Team (Late st Contact Info) Description 01/26/2025 Telephone [facility] [address] [place] [address] Surjit Fontaine MD [address] [address] Social History Tobacco Use Types [...] Wrote the work excuse and sent through [employer]. * Telephone Encounter - Karen Bernard - 01/26/2025 12:33 PM EDT Patient Phone Message Reason for Call: ED follow up scheduled with Dr. Fontaine 02/07/25 for open nondisplaced fracture of distal phalanx of left middle finger. This visit is workers comp related and the patient is seeking a return to work statement. 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 Please upload in [employer]. Thank you! Best contact number and optimal time of day to reach caller: [phone] Note: Please do not reply to this message. Follow-up communication and further actions as a result of this message need to be communicated with the patient directly, if the patient is not active onMyChart. If the patient is active on MyChart, they will receive notification of the communication/outcome via [employer]. documented in this encounter Plan of Treatment Upcoming Encounters Date Type Department Care Team (Late st Contact Info) Description 02/07/2025 1:10 PM EDT Office Visit [facility] [address] [place] [address] Surjit Fontaine MD [address] [address] documented as of this encounter Visit Diagnoses Not on filedocumented in this encounter Care Teams Monkey Breeder Relationship Specialty Start Date End Date Pcp, [place] [address] PCP - General Family Medicine 01/25/25 documented as of this encounter
--- OUTSIDE RECORDS SUMMARY | 2025-02-01 08:17 | XMS_ITS | Clinical Summary ---
Author Organization [facility] Address [address] [place] [address] Care Team Providers Care Teacher Lip Reading Name Role Phone Pcp, No Primary Care [...] Care Team Description 01/31/2025 Travel 01/30/2025 Telephone [facility] [address] [place] [address] Letty Walker RN 01/26/2025 Telephone [facility] [address] [place] [phone] Surjit Fontaine MD 01/25/2025 11:43 AM EDT - 01/25/2025 3:10 PM EDT Emergency [facility] Emergency Department [address] [place] [address] Francesca Baeza MD Avulsion of finger, initial [...] Office Visit [facility] [address] [place] [address] Surjit Fontaine MD [address] [address] Health Maintenance Due Date Last Done Comments [...] 2010 [facility]-Cervical Cancer Screening 11/29/2019 [facility]-HPV/Cotest 11/29/2019 [id number] Vaccine ( season) 2024 [facility]-Influenza Vaccine (#1) [...] Resul t from Last [id number] [facility] [address] [employer] [facility] MEDICAID GENERIC WORKERS [employer] Care Teams Teacher Lip Reading Relationship Specialty Start Date End Date Pcp, Britany [address] [place] [address] PCP - General Family Medicine 01/25/25
--- OUTSIDE RECORDS SUMMARY | 2025-02-01 08:17 | XMS_ITS | Encounter Summary ---
Author Organization [facility] Address [address] [place] [address] Care Team Providers Care Generator Operator Name Role Phone Pcp, No Primary [...] Office Visit [facility] [address] [place] [address] Surjit Fontaine MD [address] [place] [address] documented as of this encounter Visit Diagnoses Not on filedocumented in this encounter Care Teams Generator Operator Relationship Specialty Start Date End Date Pcp, Britany [address] [place] [address] PCP - General Family Medicine 01/25/25 documented as of this encounter
--- OUTSIDE RECORDS SUMMARY | 2025-02-01 08:17 | XMS_ITS | Encounter Summary ---
Author Organization Healthcare Address [address] [place] [address] Care Team Providers Care Darkroom Technician Name Role Phone Pcp, No Primary Care [...] Office Visit [facility] [address] [place] [address] Surjit Fontaine MD [address] [address] documented as of this encounter Visit Diagnoses Not on filedocumented in this encounter Care Teams Darkroom Technician Relationship Specialty Start Date End Date Pcp, No [address] [place] [address] PCP - General Family Medicine 01/25/25 documented as of this encounter
--- OUTSIDE RECORDS SUMMARY | 2025-02-01 08:17 | XMS_ITS | Encounter Summary ---
Author Organization Healthcare Address [address] [place] [address] Care Team Providers Care Psychologist Social Name Role Phone Pcp, No Primary Care Provider Unavailabl e Encounter Details Date Type Department Care Team (Late st Contact Info) Description 01/30/2025 Telephone [facility] [address] [place] [address] Letty Walker RN [facility] Social History Tobacco Use Types [...] Office Visit [facility] [address] [place] [address] Surjit Fontaine MD [address] [phone] documented as of this encounter Visit Diagnoses Not on filedocumented in this encounter Care Teams Psychologist Social Relationship Specialty Start Date End Date Pcp, No [address] [place] [address] PCP - General Family Medicine 01/25/25 documented as of this encounter
--- OUTSIDE RECORDS SUMMARY | 2025-02-01 08:17 | XMS_ITS | Clinical Summary ---
Author Organization [facility] Address [address] [place] [address] Care Team Providers Care Senior Architectural Designer Name Role Phone Eugenio Ibarra MD Primary Care Provider [phone] Allergies Active Allergy Reactions Criticality Noted Date [...] patient's age to complete this topic Insurance [id number] [place] [address] [place] [address] [facility] [place]ICAID [place] Advance Directives Documents on File Type Date Recorded Patient Inspector Multifocal Lens Expl anation LIVING WILL - SCAN 09/09/2017 3:44 PM RIKA NG WILL 09/04/17 Care Teams Senior Architectural Designer Relationship Specialty Start Date End Date Eugenio Ibarra MD [facility] [address] ATTN: [place] [address] PCP - General Emergency Medicine 09/04/17
[2025-02-01 09:06] LABS: Hematocrit 36.6 % (37.0-47.0); Hemoglobin 11.6 g/dL (12.2-16.2); Immature Granulocytes % 0.2 %; Mean Corpuscular HGB Conc 31.7 g/dL (31.8-35.4); Mean Corpuscular Hemoglobin 29.1 pg (27.0-31.2); Mean Corpuscular Volume 92.0 fl (81-99); Nucleated Red Blood Cells % 0 %; Platelet Count 329 K/mm3 (142-424); Red Blood Count 3.98 M/mm3 (4.20-5.40); Red Cell Distribution Width-SD 45.9 fL; White Blood Count 4.8 K/mm3 (4.8-10.8)
[2025-02-01 09:31] LABS: Alanine Aminotransferase 48 U/L (12-78); Albumin Level 4.3 g/dl (3.5-5.0); Albumin/Globulin Ratio 1.5 (1.1-1.8); Alkaline Phosphatase 60 U/L (38-126); Anion Gap 9.2 mEq/L (5-15); Aspartate Amino Transferase 66 U/L (14-36); Bilirubin,Total 0.7 mg/dl (0.2-1.3); Blood Urea Nitrogen 9 mg/dl (7-17); Calcium 9.1 mg/dl (8.4-10.2); Carbon Dioxide 25 mmol/L (22.0-30.0); Chloride 108 mmol/L (98-107); Cholesterol 148 mg/dl (140-200); Creatinine,Serum 0.70 mg/dl (0.52-1.04); Estimated Glomerular Filt Rate 95 ml/min (>60); GFR (African American) 115 ML/MIN (>60); Globulin 2.8 g/dL (1.3-3.2); Glucose 67 mg/dl (74-100); HDL Cholesterol 61 mg/dl (40-60); Potassium 4.2 mmoL/L (3.5-5.1); Sodium 138 mmol/L (136-145); Total Protein,Serum 7.1 g/dl (6.3-8.2); Triglycerides 69 mg/dl (30-150)
[2025-02-01 09:36] LABS: C-Reactive Protein 0.5 mg/L (0-4)
[2025-02-01 09:45] LABS: 25-OH Vitamin D, Total 40.6 ng/mL (30-100)
[2025-02-01 09:47] LABS: Free T4 (Free Thyroxine) 1.23 ng/dl (0.78-2.19)
[2025-02-01 10:19] LABS: Vitamin B12 443 pg/mL (239-931)
[2025-02-01 11:35] LABS: Folate 4.75 ng/mL
[2025-02-01 12:10] LABS: Hemoglobin A1C 5.0 % (4.0-6.0)
[2025-02-01 13:25] LABS: Thyroid Stimulating Hormone 4.81 uIU/mL (0.465-4.68)
== END 2025-02-01 23:59 | disposition home or self-care (01) ==
LOC: LAB 08:08
PROVIDERS: PCP Nurse Practitioner Family; Visit Provider Nurse Practitioner Family
DX: Z12.31 Encounter for screening mammogram for malignant neoplasm of breast (principal); E22.1 Hyperprolactinemia; E66.9 Obesity, unspecified; F17.210 Nicotine dependence, cigarettes, uncomplicated; F32.A Depression, unspecified; Z11.4 Encounter for screening for human immunodeficiency virus [HIV]; Z11.59 Encounter for screening for other viral diseases; Z13.0 Encounter for screening for diseases of the blood and blood-forming organs and certain disorders involving the immune mechanism; Z13.1 Encounter for screening for diabetes mellitus; Z13.220 Encounter for screening for lipoid disorders; Z13.228 Encounter for screening for other metabolic disorders
CPT/HCPCS: 36415; 80053; 80061; 80074; 82306; 82607; 82746; 83036; 84439; 84443; 85025; 85651; 86140; 87389

== ENCOUNTER 2025-02-04 12:51 | Emergency (ER) | payer OTHER, SELFPAY ==
--- OUTSIDE RECORDS SUMMARY | 2025-01-25 11:43 | XMS_ITS | Encounter Summary ---
Author Organization [facility] Address [address] [place] [address] Care Team Providers Care Accreditation Specialist Name Role Phone Pcp, No Primary Care Provider Unavailabl e Reason for Referral * Consultation (Urgent) - Pending Review Specialty Diagnoses / Procedures Referred By Jose street Referred To Contact Hand Surgery Diagnoses Avulsion of finger, initial encounter Open nondisplaced fracture of distal phalanx of left middle finger, initial encounter Princess Paredes PA [address] [address] Phone: tel: fax: Surjit Fontaine MD [address] [address] Phone: tel: fax: Referral ID Status Reason Start Date Expiration Date Visits Requested Visits Authorized [id number] Pending Review Specialty Services Required 01/25/2025 07/27/2026 1 1 Scheduling Instructions Follow-up with Dr. Fontaine in 1-2 weeks at outpatient hand clinic Reason for Visit * Reason Comments Finger Injury Encounter Details Date Type Department Care Team (Late st Contact Info) Description 01/25/2025 11:43 AM EDT - 01/25/2025 3:10 PM EDT Emergency [facility] Emergency Department [address] [place] [address] Francesca Baeza MD [address] [place] [address] Avulsion of finger, initial encounter (Primary Dx); Open nondisplaced fracture of distal phalanx of left middle finger, initial encounter Discharge Disposition: Home or Self Care Social History Tobacco Use Types Packs/Day Years Used Date Smoking Tobacco: Never Assessed Comments Unknown Sex and Gender Information Value Date Recorded Sex Assigned at Not on file Legal Sex Female 8:35 PM EDT Gender Identity Not on file Sexual Orientation Not on file documented as of this encounter Last Filed Vital Signs Vital Sign Reading Time Taken Comments Blood Pressure 135/85 01/25/2025 2:36 PM EDT Pulse 69 01/25/2025 2:36 PM EDT Temperature 36.7 C (98.1 F) 01/25/2025 2:36 PM EDT Respiratory Rate 16 01/25/2025 2:36 PM EDT Oxygen Saturation 100% 01/25/2025 2:36 PM EDT Inhaled Oxygen Concentration - - Weight 76.5 kg (168 lb 10.4 oz) 025 11:24 AM EDT Height 154.9 cm (5' 1 ) 01/25/2025 11:2 4 AM EDT Body Mass Index 31.87 01/25/2025 11:24 AM EDT documented in this encounter Functional Status * Calculated C-SSRS Risk Score (Lifetime/Recent) Answer Date of Assessment Author No Risk Indicated 01/25/2025 12:15 PM EDT Jessenia Leal RN * Question Answer Date of Assessment Author 1. Wish to be (Past 1 Month) No 01/25/2025 12:15 PM EDT Jessenia Leal RN 2. Non-Specific Active Suici indira Thoughts (Past 1 Month) No 01/25/2025 12:15 PM EDT France Leal RN 6. Suicidal Behavior (Lifetime) No 12:15 PM EDT Jessenia Leal RN documented as of this encounter Discharge Instructions * Discharge Instructions* Winnie Storm DO - 01/25/2025 2:16 PM EDT You have been evaluated in the ED for your complaints. Please follow up with Plastic Surgery. If you experience any new or worsening symptoms please return to ED for further evaluation and management. Please take your Keflex as prescribed. documented in this encounter Medications at Time of Discharge acetaminophen (Tylenol) 500 MG tablet Take 2 tablets by mouth every 6 hours as needed (pain) for up to 10 days. 40 tablet 01/25/2025 5 cephalexin (Keflex) 500 MG capsuleIndications :Avulsion of finger, initial encounter,Open nondisplaced fracture of distal phalanx of left middle finger, initial encounter Take 1 capsule by mouth 4 times a day for 5 days. 20 capsule 01/25/2025 5 documented as of this encounter Miscellaneous Notes * ED Procedure Note - Princess Paredes PA - 01/25/2025 3:10 PM EDT [facility] Department of Surgery Division of Plastic Surgery Nailbed Repair Procedural Note Procedure Name: Nailbed Repair Indication: Promote wound healing, prevent infection, prevent bleeding Location: left long finger The risks, benefits, indications, contraindications, and surgical alternatives were explained to the patient. Commonly associated risks of the procedure where also discussed with the patient in detail. The patient participated in the discussion and was given an opportunity to ask questions. All questions were answered to the patient's verbal satisfaction. Procedure Details Local anesthesia was achieved using 10 mL of lidocaine 1% without epinephrine. A digital block of the left long finger was performed. Following this, the area was cleaned and irrigated thoroughly with normal saline. We then prepped and draped the involved hand in the usual sterile fashion. Physician donned sterile gloves per hospital policy. A tourniquet was applied to the base of the injured finger. We began the procedure by examining the nail bed. On examination, nail bed sustained a transverse laceration which was repaired with 6-0 plain gut suture in an interrupted fashion. The eponychialfold was then stented with Adaptic which was sutured in place with 5-0 plain gut suture in a half buried horizontal mattress fashion. Soft tissue was used to cover a small inferior portion of distal phalanx. A sterile dressing was then applied with Xeroform, Cheryle wrap and Alumafoam splint was placed. The patient tolerated the procedure well without complications Princess Paredes PA-C Plastic & Reconstructive Surgery * Trini Flanagan - Emeterio Winnie DO [place] - 01/25/2025 2:15 PM EDT Images from the original note were not included. [id number] Open Hand Fracture (Adult) You have a fracture, or broken bone, in your hand. An open fracture means that the bone goes through the skin. Or it may mean there is a wound in the skin that goes as deep as the fractured bone. Because of this, there is a risk of infection to the skin or bone. The fractured bone may be a small crack or chip. Or it may be a major break, with the broken parts pushed out of position. A hand fracture is often treated with a splint or cast. It usually takes 4 to 6 weeks to heal. Severe injuries may require surgery. Open fractures are at risk of becoming infected. You will be given an antibiotic to lower the risk of infection. Home care ? Keep your arm raised at elbow level as much as possible when sitting or standing. Sleep with yourarm on your chest or on a pillow at your side. This is very important during the first 48 hours. ? Apply an ice pack over the injured area for no more than 15 to 20 minutes. Do this every 1 to 2 hours for the first 24 to 48 hours. To make an ice pack, put ice cubes in a plastic bag that seals atthe top. Wrap the bag in a clean, thin towel or cloth. Never put ice or an ice pack directly on your skin. You can place the ice pack inside the sling and directly over the splint or cast. As the icemelts, be careful that the cast or splint doesn?t get wet. Continue with ice packs as needed to ease pain and swelling. ? Keep the cast or splint completely dry at all times. Bathe with your cast or splint out of the water, protected with [address] 1 bag outside of the other. Tape each bag with duct tape at the top end or use rubber bands. If a fiberglass cast or splint gets wet, dry it with a hairdryer on a cool setting. ? Do not apply powder or lotion on, near, or inside the cast. Do not try to insert anything in yourcast. This can injure your skin, which may lead to infections. ? You may use vtpy-hii-vgeidss pain medicine to control pain, unless another pain medicine was prescribed. Always talk with your health care provider before using these medicines if you have chronic liver or kidney disease, ever had a stomach ulcer or gastrointestinal bleeding, or take a blood thinner. ? Take any antibiotics prescribed as directed and until finished. ? Your provider may assess your risk for venous thromboembolism (VTE). You may be prescribed some medicines to avoid or reduce your risk of having other problems. Be sure to take them as advised. Follow-up care Follow up with your health care provider within 1 week, or as advised. This is to be sure the bone is healing correctly. If you were given a splint, it may be changed to a cast at your follow-up visit. If X-rays were taken, you will be told of any new findings that may affect your care. When to get medical advice Contact your health care provider right away if: ? The plaster cast or splint becomes wet or soft. ? The fiberglass cast or splint stays wet for more than 24 hours. ? Increased tightness or pain develops under the cast or splint. ? Your fingers become swollen, cold, blue, numb, or tingly. ? The wound has redness, warmth, swelling, or drainage. ? The cast or splint has a bad smell. ? You have a fever of 100.4 F (38 C) or higher, or as directed by your provider. ? You have chills. Last Reviewed Date: 2024 00:00:00 ?? [id number] The [employer]. All rights reserved. This information is not intended as a substitute for professional medical care. Always follow your healthcare professional's instructions. * Consults - Princess Paredes PA - 01/25/2025 1:54 PM EDTAssociated Order(s): Consult to Plastic Surgery Consult to Plastic Surgery Consult performed by: Princess aPredes PA Consult ordered by: Francesca Baeza MD Plastic Surgery Hand History and Physical Date: 01/25/25 Referring Physician: No ref. provider found Chief Complaint: Left long finger injury HPI: Haydee Pritchard is a 34 y.o. right hand dominant female presenting to ED for evaluation of Llong finger injury. Per patient she cut the tip of her finger while using a cutting machine at workthis morning. Bleeding is controlled upon arrival. Endorses significant amount of pain to the digit. Imaging obtained demonstrated an avulsion tuft fracture with associated fracture of the distal aspect of the remaining phalanx of the L middle finger. She denies fever, chills, nausea, vomiting. Shehas no other concerns at this time. Past Medical History: No past medical history on file. Past Surgical History: No past surgical history on file. Allergies: Allergies Allergen Reactions Morphine Hives Reviewed & NC Social History: Social Drivers of Health Food Insecurity: Not on file Alcohol Use: Not on file Housing Stability: Not on file Tobacco Use: Not on file Transportation Needs: Not on file Depression: Not on file Utilities: Not on file Stress: Not on file Intimate Partner Violence: Not on file Physical Activity: Not on file Social Connections: Not on file Financial Resource Strain: Not on file Tobacco: vape use Alcohol: denies Illicit Drug Use: denies Family History: Reviewed and non-contributory. ROS: Negative 14 point review of systems except present in HPI. Physical Exam General: NAD HEENT: atraumatic, normocephalic Resp: unlabored respiratory effort Psych: anxious appearing Neuro: alert and oriented Skin: Avulsion of distal tip of L long finger with no exposed distal phalanx. Nail plate not present. Nail bed laceration present. Card/Vascular/Capillary Refill ( >2sec or < 2 sec. D + Doppler signal only) Left: Radial pulse 2+, Ulnar pulse 2+ Thumb <2 sec, Index <2 sec, Middle <2 sec, ring <2 sec, small <2 sec Neuro/Sensory Examination Left: Thumb <8 mm, Index <8 mm, Middle <8 mm, ring <8 mm, small <8 mm Median nerve <8mm, Radial nerve <8mm, Ulnar nerve <8mm MSK/Motor Examination Left: Full ROM Thumb: 5/5 FPL, 5/5 FPB, 5/5 EPL, 5/5 EPB Index: 5/5 FDS, 5/5 FDP, 5/5 EDC, 5/5 EIP Middle: 5/5 FDS, 5/5 FDP, 5/5 EDC Rin/5 FDS, 5/5 FDP, 5/5 EDC Small: 5/5 FDS, 5/5 FDP, 5/5 EDC, 5/5 EDM Wrist: 5/5 FCR, 5/5 FCU, 5/5 ECRL/B, 5/5 ECU Imaging: XR Hand 3+ Views Left Result Date: 01/25/2025 Impression: Avulsion of the tuft of the middle finger with associated fracture of the distal aspectof the remaining phalanx of the middle finger. CRITICAL RESULT: No. COMMUNICATION: Per this writtenreport. Drafted by Aaron Cortez MD on 01/25/2025 1:17 PM Final report signed by Aaron Cortez MD on 01/25/2025 1:18 PM MDM: Pt discussed with Dr. Fontaine Labs ordered/ reviewed Radiology personally reviewed OSH records reviewed Assessment: Haydee Pritchard is a 34 y.o. right hand dominant female presenting to ED for evaluation of L longfinger injury. Imaging obtained demonstrated an avulsion tuft fracture with associated fracture of the distal aspect of the remaining phalanx of the L middle finger. Plan: - Please see procedure note for further details. - Recommend course of Keflex per ED - Keep dressing C/D/I until follow-up - Patient to follow-up at outpatient hand clinic in 1-2 weeks, orders placed - Do not soak digit. OK to shower with warm soapy water. Princess Paredes PA-C Plastic & Reconstructive Surgery Cosigned by Surjit Fontaine MD at 02/02/2025 6:23 PM EDT * ED Provider Notes - Winnie Storm DO - 01/25/2025 11:14 AM EDT - HPI Chief Complaint Patient presents with ??? Finger Injury [facility] NOTE Haydee Pritchard is a 34 y.o. female who presents to the ED with finger injury. Pt c/o distal finger amputation left 3rd digit after her part slipped while at work and cut her finger. Pt states the amputated portion of finger is in the tip of her glove. She states she has received TDAP in the last 5 years. She reports allergy to Morphine. Patient has no other complaints at this time. science interpreter used: No MAIN ED NOTE//Winnie Storm DO: I assumed full responsibility for this patient after transfer to Main ED from [facility]. I personally performed my own history, ROS, and physical. I agree with the above [facility] documentation with the following additions/exceptions: Patient denies injury elsewhere. She is right-hand dominant. Patient History Past Medical History[1] Surgical History[2] Family History[3] Social History[4] Allergies: Allergies[5] Physical Exam ED Triage Vitals [01/25/25 1124] Temp Heart Rate Resp BP 36.7 ??C (98 ??F) 88 16 128/82 SpO2 Temp Source Heart Rate Source Patient Position 100 % Oral -- Sitting BP Location FiO2 (%) Right arm -- Physical Exam Vitals and nursing note reviewed. Constitutional: General: She is not in acute distress. HENT: Head: Normocephalic and atraumatic. Comments: No facial swelling Nose: Nose normal. Mouth/Throat: Mouth: Mucous membranes are moist. Pharynx: Oropharynx is clear. Eyes: Conjunctiva/sclera: Conjunctivae normal. Cardiovascular: Rate and Rhythm: Normal rate. Pulmonary: Effort: Pulmonary effort is normal. No respiratory distress. Breath sounds: Normal air entry. Comments: Speaking full sentences. Symmetric chest rise Abdominal: General: There is no distension. Musculoskeletal: General: No deformity. Normal range of motion. Left hand: Laceration present. Normal range of motion. Normal strength. Normal sensation. Cervical back: Normal range of motion. Comments: Injury to left middle finger tip without active bleeding Skin: General: Skin is warm and dry. Capillary Refill: Capillary refill takes less than 2 seconds. Neurological: General: No focal deficit present. Mental Status: She is alert. Mental status is at baseline. Comments: Awake Psychiatric: Mood and Affect: Mood normal. Behavior: Behavior normal. [place] Coma Scale Score: 15 ED Course & MDM Date/Time: 01/25/2025 3:00 PM Scribe Attestation: This note was dictated to me, Octavia Knight, acting as a scribe for Marques Cates MD. Attending Attestation: The documentation was recorded by Octavia Knight acting as scribe in my presence at the time of the encounter and accurately reflects the service I personally performed. - Assessment: 34 y.o. female presents to ED with complaint of finger injury. Patient has no significant past medical history. Differential Diagnosis: open fracture, finger amputation, neurovascular injury, soft tissue infection, In order to fully explore the differential diagnosis the following treatments and tests were ordered: ED Medication Administration from 01/25/2025 1114 to 01/25/2025 1500 Date/Time Order Dose Route Action 01/25/2025 1220 EDT ceFAZolin (Ancef) injection 2 g 2 g Intravenous Given 01/25/2025 1221 EDT fentaNYL (Sublimaze) injection 50 mcg 50 mcg Intravenous Given 01/25/2025 1221 EDT ondansetron (Zofran) injection 4 mg 4 mg Intravenous Given 01/25/2025 1435 EDT oxyCODONE (Roxicodone) immediate release tablet 5 mg 5 mg Oral Given All Other Orders Ordered Status Ordering Provider 01/25/25 1228 Consult to Plastic Surgery Once Specialty: Plastic Surgery Provider: (Not yet assigned) Acknowledged WINNIE STORM 01/25/25 1140 Insert peripheral IV Once Acknowledged MARQUES CATES 01/25/25 1140 XR Hand 3+ Views Left Once Final result MARQUES CATES Clinical Impressions as of 01/25/25 1500 Avulsion of finger, initial encounter Open nondisplaced fracture of distal phalanx of left middle finger, initial encounter Social Determinates of Health Risks (including Economic Stability, Education and level of understanding, Healthcare access and quality and concerning social factors): No current PCP Please let roberto is a 34-year-old female with no significant past medical history who presents to the ED for evaluation of finger injury. Initial assessment of the patient, she is hemodynamically stable and not in acute distress. Patient reports injury to her left middle finger. She now her finger crushed while at work. Denies injury elsewhere. Differential diagnosis including but not limited to finger amputation, acute fracture, neurovascular injury, and Soft tissue injury. Initial ED workup includes x-ray of left hand. Pain management initiated with 50 mcg of fentanyl. Ancef 2 g ordered for infection prophylaxis. The patient Tdap up-to-date. X-ray of left hand significant for avulsion of the tuft of the middle finger with associated fracture of the distal aspect of the remaining phalanx of the middle finger. Consult to Plastic Surgery placed for hand evaluation. Patient complains of return of pain to her hand, oxycodone ordered. Ultimately, this patient was Was discharged Home (Discharge) The primary encounter diagnosis was Avulsion of finger, initial encounter. A diagnosis of Open nondisplaced fracture of distal phalanx of left middle finger, initial encounter was also pertinent to this visit. . Patient was counseled on the diagnoses. Discharge medications if any are listed below. Listed medications are thought be either curative for listed diagnoses or will help control ongoing symptoms. Patient is requested to follow up with Plastics in order to obtain routine follow-up. Instructions on follow up as well as precautions to return to the ER provided verbally by the EM provider, as well as written in patients discharge education packet. ED Prescriptions Medication Sig Dispense Start Date End Date Auth. Provider cephalexin (Keflex) 500 MG capsule Take 1 capsule by mouth 4 times a day for 5 days. 20 capsule 01/25/2025 01/30/2025 Francesca Baeza MD acetaminophen (Tylenol) 500 MG tablet Take 2 tablets by mouth every 6 hours as needed (pain) for upto 10 days. 40 tablet 01/25/2025 02/04/2025 Francesca Baeza MD Discharge Instructions You have been evaluated in the ED for your complaints. Please follow up with Plastic Surgery. If you experience any new or worsening symptoms please return to ED for further evaluation and management. Please take your Keflex as prescribed. Disposition Discharge AVS (Urdu Snapshot) - Printed 01/25/2025 - [1] No past medical history on file. [2] No past surgical history on file. [3] No family history on file. [4] [5] Allergies Allergen Reactions ??? Morphine Hives Winnie Storm DO Resident 01/25/25 1542 Cosigned by Francesca Baeza MD at 01/29/2025 12:18 PM EDT Associated attestation - Francesca Baeza MD - 01/29/2025 12:18 PM EDT I saw and evaluated the patient with the resident/fellow. I discussed the case with the resident/fellow and agree with the findings and plan as documented. 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 She has pain isolated to that area. No other injuries sustained at the time. Her tetanus is up to date. Exam reveals: Normal vital signs. Seems anxious with bandage to left long finger and area elevated. PERRL; EOMI; op clear. Neck supple. Normal rate; regular rhythm; no mrg; no peripheral edema; 2+ radials. Lungs CTAB. Abdomen is soft and nontender. Focusing on left long finger - the distal tip is completely avulsed (this is isolated to distal tip/ does not traverse whole nailbed or go up past DIP - just distal tip. Area is with slight ooze of blood. Able to flex and extend against resistance in isolated fashion at MCP, PIP and DIP. MDM: We needed to determine extent of injury at the distal end of the left long finger - it appeared to be completely avulsed off but quite distal. Would need plastics/hand consultation for repair. Covered with antibiotics. Tetanus is up to date. Plain films needed. I have independently reviewed and interpreted plain films and radiology has interpreted them as well. These films reveal a distal avulsion of the tip of the digit with fracture of the existing distalphalanx. Plastics has performed a complex repair at the bedside. Pt is going to be discharged on keflex, appropriate pain control, and follow up with plastics clinic. Pt in stable condition at time of discharge. ED Diagnosis: Acute distal left middle finger avulsion / open fracture of distal phalanx s/p repair in ED. * ED Triage Notes - Destiny Elias RN - 01/25/2025 11:14 AM EDT Pt states she cut the tip of her 3rd finger on her left hand off at work, bleeding controlled at time triage. Tip of finger remains in glove. States that he last tetanus has been within the last 5 years. documented in this encounter Plan of Treatment Upcoming Encounters Date Type Department Care Team (Late st Contact Info) Description 02/07/2025 1:10 PM EDT [facility] [address] [place] [address] Surjit Fontaine MD [address] [address] Scheduled Referrals Name Type Priority Associated Diagnoses Orde r Schedule Discharge Ambulatory referral to Hand Surgery Outpatient Referral Routine Avulsion of finger, initial encounter Open nondisplaced fracture of distal phalanx of left middle finger, initial encounter Expected: 02/01/2025, Expires: 07/29/2026 documented as of this encounter Procedures Procedure Name Priority Date/Time Associated Diagnosis Comments XR HAND LEFT 3+ VIEWS STAT 01/25/2025 12:07 PM EDT documented in this encounter Results * XR Hand 3+ Views Left (01/25/2025 12:07 PM EDT) Anatomical Region Laterality Modality Upper Extremities, Hand Left Digital Radiography Impressions 01/25/2025 1:18 PM EDT Avulsion of the tuft of the middle finger with associated fracture of the distal aspect of the remaining phalanx of the middle finger. CRITICAL RESULT: No. COMMUNICATION: Per this written report. Drafted by Aaron Cortez MD on 01/25/2025 1:17 PM Final report signed by Aaron Cortez MD on 01/25/2025 1:18 PM Narrative 01/25/2025 1:18 PM EDT CLINICAL INDICATION: hand injury TECHNIQUE: XR HAND LEFT 3+ VIEWS COMPARISON: None. FINDINGS: Avulsion of the tuft of the middle finger with a residual fracture involving the remainder of the distal phalange. No additional acute osseous abnormalities identified. No radiopaque foreign body. Procedure Note Aaron Cortez MD - 01/25/2025 CLINICAL INDICATION: hand injury TECHNIQUE: XR HAND LEFT 3+ VIEWS COMPARISON: None. FINDINGS: Avulsion of the tuft of the middle finger with a residual fractureinvolving the remainder of the distal phalange. No additional acuteosseous abnormalities identified. No radiopaque foreign body. IMPRESSION: Avulsion of the tuft of the middle finger with associated fracture of thedistal aspect of the remaining phalanx of the middle finger. CRITICAL RESULT: No. COMMUNICATION: Per this written report. Drafted by Aaron Cortez MD on 01/25/2025 1:17 PM Final report signed by Aaron Cortez MD on 01/25/2025 1:18 PM Marques Cates MD IMG XR PROCEDURES Final Resul t documented in this encounter Visit Diagnoses Diagnosis Avulsion of finger, initial encounter- Primary Open nondisplaced fracture of distal phalanx of left middle finger, initial encounter documented in this encounter Administered Medications Inactive Administered Medications - up to 3 most recent administrations Medication Order MAR Action Action Date Dose Rate Site ceFAZolin (Ancef) injection 2 g 2 g, Intravenous, Once, 1 dose, On Thu01/25/25 at 1145, STAT Given 01/25/2025 12:20 PM EDT 2 g fentaNYL (Sublimaze) injection 50 mcg 50 mcg, Intravenous, Once, 1 dose, On Thu01/25/25 at 1145, STAT Given 01/25/2025 12:21 PM EDT 50 mcg ondansetron (Zofran) injection 4 mg 4 mg, Intravenous, Once, 1 dose, On Thu01/25/25 at 1145, STAT Given 01/25/2025 12:21 PM EDT 4 mg oxyCODONE (Roxicodone) 5 MG immediate release tablet - Pyxis Override Pull 1 dose, Starting on Thu01/25/25 at 1430, Until Thu01/25/25 at 1435 oxyCODONE (Roxicodone) immediate release tablet 5 mg 5 mg, Oral, Once, 1 dose, On Thu01/25/25 at 1430, STAT Given 01/25/2025 2:35 PM EDT 5 mg documented in this encounter Active and Recently Administered Medications Times are shown in EDT. Scheduled Medication Order 01/23/2025 01/24/2025 01/25/2025 ceFAZolin (Ancef) injection 2 g (COMPLETED) 2 g, Intravenous, Once, 1 dose, On Thu01/25/25 at 1145, STAT 1220 (Given - Provid er: Jessenia Leal RN) fentaNYL (Sublimaze) injection 50 mcg (COMPLETED) 50 mcg, Intravenous, Once, 1 dose, On Thu01/25/25 at 1145, STAT 1221 (Given - Provid er: Jessenia Leal RN) ondansetron (Zofran) injection 4 mg (COMPLETED) 4 mg, Intravenous, Once, 1 dose, On Thu01/25/25 at 1145, STAT 1221 (Given - Provid er: Jessenia Leal RN) oxyCODONE (Roxicodone) immediate release tablet 5 mg (COMPLETED) 5 mg, Oral, Once, 1 dose, On Thu01/25/25 at 1430, STAT 1435 (Given - Provid er: Jessenia Leal RN) documented in this encounter Care Teams Accreditation Specialist Relationship Specialty Start Date End Date Pcp, No [address] [place] [address] PCP - General Family Medicine 01/25/25 documented as of this encounter
[2025-02-04 12:59] VITALS: BP 138/85; PULSE 75; RESP 19; TEMP 37; O2SAT 100; BMI 30.2
--- OUTSIDE RECORDS SUMMARY | 2025-02-04 13:00 | XMS_ITS | Encounter Summary ---
Author Organization Healthcare Address [address] [place] [address] Care Team Providers Care Rv Detailer Name Role Phone Pcp, No Primary Care Provider Unavailabl e Encounter Details Date Type Department Care Team (Late st Contact Info) Description 01/30/2025 Telephone [facility] [address] [place] [address] Letty Walker RN [facility] Social History Tobacco Use Types [...] Office Visit [facility] [address] [place] [address] Surjit Fontaine MD [address] [phone] documented as of this encounter Visit Diagnoses Not on filedocumented in this encounter Care Teams Rv Detailer Relationship Specialty Start Date End Date Pcp, No [address] [place] [address] PCP - General Family Medicine 01/25/25 documented as of this encounter
--- OUTSIDE RECORDS SUMMARY | 2025-02-04 13:00 | XMS_ITS | Clinical Summary ---
Author Organization [facility] Address [address] [place] [address] Care Team Providers Care Adolescent Counselor Name Role Phone Pcp, No Primary Care [...] Care Team Description 01/31/2025 Travel 01/30/2025 Telephone [facility] [address] [place] [address] Letty Walker RN 01/26/2025 Telephone [facility] [address] [place] [phone] Surjit Fontaine MD 01/25/2025 11:43 AM EDT - 01/25/2025 3:10 PM EDT Emergency [facility] [address] [place] [address] Francesca Baeza MD Avulsion of finger, initial [...] Office Visit [facility] [address] [place] [phone] Surjit Fontaine MD [address] [address] Health Maintenance Due Date Last Done Comments [...] 2010 [facility]-Cervical Cancer Screening 11/29/2019 [facility]HPV/Cotest 11/29/2019 [id number] Vaccine ( season) 2024 [facility]-Influenza Vaccine (#1) [...] Resul t from Last 3 Months Insurance [employer] [address] [place] [address] Care Teams Adolescent Counselor Relationship Specialty Start Date End Date Pcp, Britany [place] [address] PCP - General Family Medicine 01/25/25
--- OUTSIDE RECORDS SUMMARY | 2025-02-04 13:00 | XMS_ITS | Encounter Summary ---
Author Organization Healthcare Address [address] [place] [address] Care Team Providers Care Stage Builder Name Role Phone Pcp, No Primary Care [...] Office Visit [facility] [address] [place] [phone] Surjit Fontaine MD [address] [place] [address] documented as of this encounter Visit Diagnoses Not on filedocumented in this encounter Care Teams Stage Builder Relationship Specialty Start Date End Date Pcp, Britany [address] [place] [address] PCP - General Family Medicine 01/25/25 documented as of this encounter
--- OUTSIDE RECORDS SUMMARY | 2025-02-04 13:00 | XMS_ITS | Encounter Summary ---
Author Organization Healthcare Address [address] [place] [address] Care Team Providers Care Earthmoving Labourer Name Role Phone Pcp, No Primary Care [...] Office Visit [facility] [address] [place] [address] Surjit Fontaine MD [address] [address] documented as of this encounter Visit Diagnoses Not on filedocumented in this encounter Care Teams Earthmoving Labourer Relationship Specialty Start Date End Date Pcp, No [address] [place] [address] PCP - General Family Medicine 01/25/25 documented as of this encounter
--- OUTSIDE RECORDS SUMMARY | 2025-02-04 13:00 | XMS_ITS | Encounter Summary ---
Author Organization Healthcare Address [address] [place] [address] Care Team Providers Care Or Director Name Role Phone Pcp, No Primary Care Provider Unavailabl e Encounter Details Date Type Department Care Team (Late st Contact Info) Description 01/26/2025 Telephone [facility] [address] [place] [address] Surjit Fontaine MD [address] [address] Social History Tobacco Use [...] Wrote the work excuse and sent through [employer]. * Telephone Encounter - Karen Bernard - 01/26/2025 12:33 PM EDT Patient Phone Message Reason for Call: ED follow up scheduled with Dr. Fontaine 02/07/25 for open nondisplaced fracture of distal phalanx of left middle finger. This visit is workers comp related and the patient is seeking a return to work statement. 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 Please upload in [employer]. Thank you! Best contact number and optimal time of day to reach caller: [phone] Note: Please do not reply to this message. Follow-up communication and further actions as a result of this message need to be communicated with the patient directly, if the patient is not active onMyChart. If the patient is active on MyChart, they will receive notification of the communication/outcome via [employer]. documented in this encounter Plan of Treatment Upcoming Encounters Date Type Department Care Team (Late st Contact Info) Description 02/07/2025 1:10 PM EDT Office Visit [facility] [address] [place] [address] Surjit Fontaine MD [address] [phone] documented as of this encounter Visit Diagnoses Not on filedocumented in this encounter Care Teams Or Director Relationship Specialty Start Date End Date Pcp, [place] [address] PCP - General Family Medicine 01/25/25 documented as of this encounter
--- OUTSIDE RECORDS SUMMARY | 2025-02-04 13:00 | XMS_ITS | Clinical Summary ---
Author Organization [facility] Address [address] [place] [address] Care Team Providers Care Sign Hanger Name Role Phone Eugenio Ibarra MD Primary [...] patient's age to complete this topic Insurance [address] [place] [address] [facility] [place]ICAID [place] Advance Directives Documents on File Type Date Recorded Patient Feller Hand Expl anation LIVING WILL - SCAN 09/09/2017 3:44 PM RIKA NG WILL 09/04/17 Care Teams Sign Hanger Relationship Specialty Start Date End Date Eugenio Ibarra MD [facility] [address] ATTN: [facility] [place] [address] PCP - General Emergency Medicine 09/04/17
--- NOTE | 2025-02-04 13:11 | ED_ITS ---
<Statement entered by Latia Perez MD - 02/04/25 14:35> I was consulted by the DEZ, and we discussed the complexity of the problems being addressed. I approved the treatment and management plan for this patient's care in the emergency department, thus performing a substantive portion of the medical decision making. Latia Perez MD, TARIK, FACEP Discharge Plan Disposition Patient Disposition: Home, Self-Care Condition: Good Prescriptions Prescriptions: No Action buprenorphine-naloxone 2-0.5 mg tablet, sublingual 1 tab sublingual DAILY hydroxyzine pamoate 50 mg capsule 50 mg PO BID PRN (Reason: itching) Qty: 60 0RF varenicline tartrate 1 mg tablet PO sertraline 100 mg tablet PO celecoxib [Celebrex] 200 mg capsule 200 mg PO DAILY Qty: 30 2RF diclofenac sodium [Voltaren Arthritis Pain] 1 % gel 2 g topical QID Qty: 100 2RF Rx Instructions: apply to single elbow, wrist or hand; for hand includes palm/fingers/back of hand levofloxacin 750 mg tablet 750 mg PO DAILY 6 Days Qty: 6 0RF fluconazole 150 mg tablet 150 mg PO WEEKLY 21 Days Qty: 3 0RF Referrals Follow up/Referrals: Samantha Hu APRN [Primary Care Provider, Medical] - See instructions Activity Restrictions/Add. Instructions Additional Instructions/Restrictions: Please keep your follow-up with the hand surgeon/plastic surgeon at the [facility] on Thursday, please return to the emergency department with any worsening signs or symptoms to include worsening drainage, swelling, fever or chills. Please utilize Tylenol and ibuprofen as needed for symptomatic relief, however refrain from ibuprofen use today after the medication you received in the emergency department contains ibuprofen/NSAIDs. Clinical Impressions Clinical Impression: Encounter for postoperative wound check Instructions Patient Instructions: How to Care for a Surgical Wound Print Language Print Language: Turkish Discharge ED Provider: Latia Perez General Adult HPI General Chief complaint: Skin/Abscess/Foreign Body Stated complaint: WC-01/25/25-poss infection L middle finger-Pain Time Seen by Provider: 02/04/25 12:55 Mode of Arrival: Ambulatory Source of Information: Patient Description of Symptoms (Recalled from ER Triage Doc. by RN): Patient presents to ED from home with concerns for infection to her left third digit. Reports she cut off the tip of her finger on 01/25/25 at work. Reports some discolored drainage when changing her dressing the past two days. History of Present Illness HPI narrative: 34-year-old female presents to the emergency department with a left third digit injury/concern for infection/pain. 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 Keflex that was prescribed, and has been doing dressing changes as prescribed, she denies any fever chills chest pain shortness of breath nausea vomiting constipation diarrhea no urinary cosmetology, did notice some drainage from her finger the last 2 days, which concerned her prompting her emergency department visit. Patient has past medical history consistent with opioid abuse, currently on Suboxone therapy via clinic, carpal tunnel syndrome, de Quervain's tenosynovitis, FABIANA, MDD, bipolar disorder. Initial triage vitals are unremarkable. Of note she has been utilizing ibuprofen and Tylenol for the pain. Please note that above description of symptoms, in this electronic medical [address] under categorization of recalled from ER triage doctor by RN are reflective of an initial nursing assessment, however, is not reflective of my full history and physical exam that was personally taken and clarified. Consequentially, this preceding description of symptoms, which may include the patient's categorized chief complaint in the EMR, do not reflect my personal clinical impression, and the ultimate description of history of present illness and patient stated complaints should be deferred to this section of the note. Unless stated otherwise or congruent with this section of the note, additional signs, symptoms, or incongruence should be interpreted as inaccurate with my clinical impression. Onset (ago): day(s) Related Data Home Medications ?Medication ?Instructions ?Recorded ?Confirmed buprenorphine 2 mg-naloxone 0.5 mg 1 tab sublingual DA MONTY 05/11/24 11/29/24 sublingual tablet sertraline 100 mg tablet mg PO 09/19/24 11/29/24 varenicline tartrate 1 mg tablet mg PO 09/19/24 Previous Rx's ?Medication ?Instructions ?Recorded hydroxyzine pamoate 50 mg capsule 50 mg PO BID PRN itc david #60 caps 05/11/24 fluconazole 150 mg tablet 150 mg PO WEEKLY 3 weeks #3 tabs 10/14/24 levofloxacin 750 mg tablet 750 mg PO DAILY 6 days #6 t abs 10/14/24 celecoxib 200 mg capsule (Celebrex) 200 mg PO DAILY #3 0 caps 11/29/24 diclofenac sodium 1 % topical gel 2 g topical QID #100 grams 11/29/24 (Voltaren Arthritis Pain) Allergies Allergy/AdvReac Type Severity Reaction Status Date / Time acetaminophen (From Allergy Mild Verified 11/29/24 15:54 Darvocet-N) propoxyphene (From Allergy Mild Verified 11/29/24 15:54 Darvocet-N) codeine (CODEINE) Allergy Unknown Verified 11/29/24 15:54 morphine (MORPHINE) Allergy Unknown Verified 11/29/24 15:54 tramadol (TRAMADOL) Allergy Unknown Verified 11/29/24 15:54 hydromorphone (From Dilaudid) AdvReac Verified 11/29/24 15:54 [facility] Disclaimer: The information contained in this section may have been updated after the patient was seen, as this information can be updated by other users. Medical History Anxiety and depression Bipolar disorder Schizoaffective disorder, bipolar type Sinusitis Social History Smoking Status: Current every day smoker tobacco type: cigarettes packs per day: 1 and smokeless tobacco alcohol intake: never substance use type: denies use current occupational status: other Travel in the last 8 weeks?: None Have you lived/traveled outside US in past 30 days?: No Contact w/someone who lives/traveled outside US past 30 days?: No Exposure to someone with infectious disease in past 14 days?: No Do you have a fever (greater than 100.4 F or 38 C)?: No Have you tested positive for COVID-19?: No Exposed to someone with COVID-19 in past 14 days?: No Do you have a sore throat?: No Do you have a cough?: No Do you have any weakness?: No Do you have any diarrhea?: No Are you experiencing any unusual bleeding?: No Do you have any muscle aches/pain?: No Do you have any abdominal pain?: No Are you experiencing loss of taste or smell?: No Other Medical History Have you received the Flu Vaccine for this season: No Have you received the Pneumonia Vaccine: No ROS Obtained: Yes All systems reviewed & no additional complaints except as documented Physical Exam General General appearance: alert and in no apparent distress Head Head exam: atraumatic and normocephalic Eye Eye exam: Present PERRL and EOMI ENT ENT exam: Present mucous membranes moist Neck Neck exam: Present normal inspection Chest Chest inspection: Present normal inspection and symmetric chest wall rise Respiratory Respiratory exam: Present normal lung sounds bilaterally; Absent respiratory distress Cardiovascular Cardiovascular exam: Present regular rate and normal rhythm Abdominal Exam Abdominal exam: Present soft; Absent tenderness Extremities Exam Extremities exam: Present normal inspection Neurological Exam Neurological exam: Present alert and oriented X3 Psychiatric Psychiatric exam: Present normal affect Skin Skin exam: Present warm, dry, intact and other (Wound looks to be well epit helialized to the left third distal digit, no evidence of any open fracture, active wound dehiscence or drainage, no real erythema, swelling of the digit, otherwise neurovascular intact, with good range of motion) Medical Decision Making Medical Records Medical records reviewed: Yes I reviewed the patient's medical records. Screening: Per USPSTF and CDC recommendations, given the prevalence of disease in our region, it is our hospital?s policy to screen for HIV and viral Hepatitis for all patients aged 18 and over and those with ongoing risk factors. Ilya Inquiry Pt receiving controlled substance: No Ilya was queried for this patient: No Vital Signs: 02/04/25 12:59 Temperature 98.6 F Temperature Source Oral Pulse Rate [Left] 75 Respiratory Rate 19 Blood Pressure [Right Arm] 138/85 Blood Pressure Mean [Right Arm] 102 Blood Pressure Source [Right Arm] Automatic Cuff Blood Pressure Position [Right Arm] Sitting 02 Sat by Pulse Oximetry 100 Oxygen Delivery Method Room Air Medical Decision Narrative: 34-year-old female presents the emergency department with a left third digit distal finger injury/concern for infection, differential diagnosis include but not limited to postoperative infection, postoperative wound, operative pain, among others. I discussed this patient's case with the attending physician Dr. Perez he saw and examined the patient as well There is no real evidence of any active wound dehiscence or drainage, patient's wound looks to be well epithelialized, patient is already completed a p.o. course of Keflex, patient has slated follow-up with hand surgery/plastic surgery in 2 days, advised her to return to the emergency department with any worsening signs or symptoms, advised her to keep her follow-up appointment with her plastic surgery/hand team, and monitor for any systemic signs or symptoms which the patient does not currently have, patient is otherwise neurovascular tact has good range of motion, thus making flexor tendon sheath/injury less likely. I was also able to review the patient's medical record and imaging studies from [facility] at the bedside. Patient voiced understanding and agreed with current treatment plan/discharge plan. Strict ED return precautions were once again given. Will give patient 15 mg IM Toradol for symptomatic relief of pain prior to DC from the emergency department Critical Care Critical Care Time Critical Care Time: No
[2025-02-04 13:31] VITALS: BP 123/53; PULSE 76; RESP 19; O2SAT 96
[2025-02-04] MEDS: KETOROLAC 30MG/ML VIAL 15 MG IM (13:42)
[2025-02-04 13:51] VITALS: BP 133/74; PULSE 87; RESP 19; TEMP 37.1; O2SAT 98
== END 2025-02-04 13:52 | disposition home or self-care (01) ==
PROVIDERS: Emergency Provider Student in an Organized Health Care Education/Training Program; PCP Nurse Practitioner Family
DX: M79.645 Pain in left finger(s) (principal); G89.18 Other acute postprocedural pain
CPT/HCPCS: 96372; 99283; J1885

== ENCOUNTER 2025-03-31 14:00 | Outpatient (RCR) | payer OTHER, MEDICAID, SELFPAY | END 2025-03-31 23:59 | disposition home or self-care (01) | LOC: OT 14:00 | PROVIDERS: Visit Provider Plastic Surgery | DX: S62.663B Nondisplaced fracture of distal phalanx of left middle finger, initial encounter for open fracture (principal) | CPT/HCPCS: 97166 ==

== ENCOUNTER 2025-05-08 15:00 | Outpatient (RCR) | payer OTHER, MEDICAID, SELFPAY | END 2025-05-08 23:59 | disposition home or self-care (01) | LOC: OT 15:00 | PROVIDERS: Visit Provider Plastic Surgery | DX: S62.663B Nondisplaced fracture of distal phalanx of left middle finger, initial encounter for open fracture (principal) | CPT/HCPCS: 97018; 97110; 97140 ==

== ENCOUNTER 2025-05-15 15:02 | Outpatient (RCR) | payer OTHER, MEDICAID, SELFPAY | END 2025-05-15 23:59 | disposition home or self-care (01) | LOC: OT 15:02 | PROVIDERS: Visit Provider Plastic Surgery | DX: S62.663D Nondisplaced fracture of distal phalanx of left middle finger, subsequent encounter for fracture with routine healing (principal); W31.9XXD Contact with unspecified machinery, subsequent encounter | CPT/HCPCS: 97110; 97140 ==